=== PATIENT | female | born 1940 | race Caucasian/White ===

== ENCOUNTER 2024-06-05 12:11 | Outpatient (REF) | payer OTHER, SELFPAY ==
--- OUTSIDE RECORDS SUMMARY | 2024-06-05 13:53 | XMS_ITS ---
Author Organization [facility] Address [address] [place] [address] Care Team Providers Care Child Care Aide Name Role Phone Tracy Holloway Primary Care Provider Unav ailable Junie Rodríguez Unavailable [phone] Medications Medication SIG (Take, Route, Fr equency, Duration) Notes Start Date End Date Status Zolpidem Tartrate Ac tive Multivitamin Active Metamucil Active Lisinopril 10 MG 1 tablet Orally Once a day for 30 day(s) Active Ezetimibe 10 MG 1 tablet Orally Once a day for 30 day(s) Active Cetirizine HCl 5 MG 1 tablet Orally Once a day for 30 day(s) Active Calcium + D + K Acti ve Encounters Encounter Location Date Provider Diagnosis [address] [address] 05/31/2024 Junie Rodríguez Plan Of Treatment Next Appt Details Provider Name:Junie agrawal, 08/15/2024 03:30:00 PM, [address] [place], [address], Progress Notes * Rocío CHRISTIAN UDOB: [birth year] (83 yo F)Acc No.[id number]:05/31/2024 Progress Note Patient:?Isis CHRISTIANgerry Machado Provider:?Junie Rodríguez DPM :1940???Age:83 Y???Sex:Female D ate:05/31/2024 Address:[facility] [address] [place], [id number] Pcp:Tracy Holloway Subjective: * Chief Complaints: * ??? * Medical History:?Arthritis, Back,Hip,and Knee pain, CAD (Cholesterol), Chicken pox, Cataracts, High blood pressure, Numbness. * Medications:?Taking Calcium + D + K , Taking Cetirizine HCl 5 MG Tablet 1 tablet Orally Once a day , Taking Ezetimibe 10 MG Tablet 1 tablet Orally Once a day , Taking Lisinopril 10 MG Tablet 1 tablet Orally Once a day , Taking Metamucil , Taking Multivitamin , Taking Zolpidem Tartrate Objective: * Vitals:? Assessment: Plan: * Treatment: * Images: * The named appointment provid er may or may not be the originator of this progress note, and it is not deemed complete until electronically signed by the appointment provider. Sign off status: Pending * Provider:?Junie Rodríguez DPM Date:?07/2024 Generated for Brayan landry/Charu/Maximilianitting on:?06/05/2024 01:53 PM EDT
--- OUTSIDE RECORDS SUMMARY | 2024-06-05 13:53 | XMS_ITS | Patient Health Record ---
[facility] [place] Address [address] [place] [address] Care Team Providers Care Connie Scratcher Name Role Phone Tracy Holloway Primary Care Provider Unav ailable Junie Rodríguez Unavailable [phone] Coty Doll Unavailable [phone] Allergies No Known Allergies Reason For Referral Diagnosis 1 Other hammer toe(s) (acquired), left foot (M20.42) Diagnosis 2 Atherosclerosis of n ative artery of both lower extremities, with unspecified presence of clinical manifestation (I70.203) Diagnosis 3 Other hammer toe(s) (acquired), right foot (M20.41) Diagnosis 4 Arthritis of joint o f lesser toe, left (M19.072) Diagnosis 5 Primary osteoarthrit is, right ankle and foot (M19.071) Referring Provider First Name Emiliana agrawal Referring Provider Last Name Amie [facility] Provider Junie Rodríguez Referred Address [address] [facility],[place],[address], Referred Provider Specialty Podiatry Referral Priority Routine Diagnosis 1 Other hammer toe(s) (acquired), left foot (M20.42) Diagnosis 2 Other hammer toe(s) (acquired), right foot (M20.41) Diagnosis 3 Atherosclerosis of n ative artery of both lower extremities, with unspecified presence of clinical manifestation (I70.203) Diagnosis 4 Arthritis of joint o f lesser toe, left (M19.072) Diagnosis 5 Primary osteoarthrit is, right ankle and foot (M19.071) Diagnosis 6 Tinea unguium (B35.1 ) Diagnosis 7 Ingrowing nail (L60. 0) Diagnosis 8 Pain in right toe(s) (M79.674) Diagnosis 9 Pain in left toe(s) (M79.675) Diagnosis 10 Pain in right foot ( M79.671) Diagnosis 11 Pain in left foot (M 79.672) Referring Provider First Name Emiliana tanja Referring Provider Last Name Amie Referred [facility] Referred Provider Coty Doll Referred Address [address] [place], [place],[address],[place] Referred Provider Specialty Podiatry Referral Priority Routine Medications Medication SIG (Take, Route, Fr equency, [...] Calcium + D + K Acti ve Social History Tobacco Use: Social History Observation Description Date Details (start date - stop date) Never Smoker NA - NA Tobacco Use/Smoking Question Answer Notes Are you a: nonsmoker Additional Findings: Tobacco Non-User Current no n-smoker Alcohol Screen Question Answer Notes Did you have a drink containing alcohol in the p ast year? No Points 0 Interpretation Negative Tobacco use other than smoking: Question Answer Notes Are you an other tobacco user? No Problems Problem Type SNOMED Code ICD Code Onset Dates Problem Status W/U Status Risk Notes Problem 076380349854777 Primary osteoarthritis, right ankle and foot (M19.071) Active confirmed Problem Acquired hammer toe of left foot (2020042563697973) Other hammer toe(s) (acquired), left foot (M20.42) Active confirmed Problem Acquired hammer toe of right foot (7261947031648491) Other hammer toe(s) (acquired), right foot (M20.41) Active confirmed Problem Acquired hammer toe of left foot (4374202500024378) Other hammer toe(s) (acquired), left foot (M20.42) Active confirmed Problem Atherosclerosis of chilkoot artery of both lower extremities, with unspecified presence of clinical manifestation (I70.203) Active confirmed Problem Localized, primary osteoarthritis of the ankle and/or foot (420964721) Arthritis of joint of lesser toe, left (M19.072) Active confirmed Problem Osteoarthritis of midtarsal joint of left foot (2560996061731009) Osteoarthritis of midtarsal joint of left foot (M19.072) Active confirmed Problem Osteoarthritis of midtarsal joint of right foot (4468223743404154) Osteoarthritis of midtarsal joint of right foot (M19.071) Active confirmed Vital Signs Height 5 ft 4 in in 02/28/2024 Weight 130 lbs 02/28/2024 BMI 22.31 kg/m2 02/28/2024 Procedures Procedure Date Ordered Date Performed Result Body Sit e 53022-SDHS SKIN LESIONS, OVER 4 02/28/2024 N/A Encounters Encounter Location Date Provider Diagnosis [address] [address] 08/24/2023 Junie Rodríguez Atherosclerosis of chilkoot artery of both lower extremities, with unspecified presence of clinical manifestation I70.203 ; Primary osteoarthritis, right ankle and foot M19.071 ; Tinea unguium B35.1 ; Pain in right toe(s) M79.674 ; Pain in left toe(s) M79.675 and Pes planus of right foot M21.41 [facility] [address] 11/09/2023 Junie Rodríguez Atherosclerosis of chilkoot artery of both lower extremities, with unspecified presence of clinical manifestation I70.203 ; Primary osteoarthritis, right ankle and foot M19.071 ; Tinea unguium B35.1 ; Pain in right toe(s) M79.674 ; Pain in left toe(s) M79.675 ; Pes planus of right foot M21.41 ; Pain in left foot M79.672 ; Pain in left ankle and joints of left foot M25.572 ; Bursitis of left foot M77.52 ; Osteoarthritis of midtarsal joint of left foot M19.072 ; Pain in right foot M79.671 ; Pain in right ankle and joints of right foot M25.571 ; Bursitis of right foot M77.51 and Osteoarthritis of midtarsal joint of right foot M19.071 [facility] [address] [place] [address] 02/28/2024 Coty Doll Atherosclerosis of chilkoot artery of both lower extremities, with unspecified presence of clinical manifestation I70.203 ; Tinea unguium B35.1 ; Pain in right toe(s) M79.674 and Pain in left toe(s) M79.675 [facility] [address] [place] [address] 11/09/2023 Junie [facility] [address] [address] 11/09/2023 Junie [facility] [address] [address] 11/22/2023 Junie [facility] [address] 01/24/2024 Junie [facility] [address] [address] 02/03/2024 Junie [facility] [address] 02/22/2024 Coty Doll [facility] [address] [address] 05/29/2024 Junie Rodríguez Assessments Encounter Date Diagnosis (ICD Code) Assessment Notes Treatment Notes Treatment Clinical Notes Section Notes 08/24/2023 Primary osteoarthritis, right ankle and foot (ICD-10 - M19.071) 08/24/2023 Atherosclerosis of chilkoot artery of both lower extremities, with unspecified presence of clinical manifestation (ICD-10 - I70.203) 11/09/2023 Primary osteoarthritis, right ankle and foot (ICD-10 - M19.071) 11/09/2023 Atherosclerosis of chilkoot artery of both lower extremities, with unspecified presence of clinical manifestation (ICD-10 - I70.203) 02/28/2024 Tinea unguium (ICD-10 - B35.1) 02/28/2024 Atherosclerosis of chilkoot artery of both lower extremities, with unspecified presence of clinical manifestation (ICD-10 - I70.203) 02/28/2024 Pain in right toe(s) (ICD-10 - M79.674) 11/09/2023 Tinea unguium (ICD-10 - B35.1) 08/24/2023 Tinea unguium (ICD-10 - B35.1) 08/24/2023 Pain in right toe(s) (ICD-10 - M79.674) 11/09/2023 Pain in right toe(s) (ICD-10 - M79.674) 02/28/2024 Pain in left toe(s) (ICD-10 - M79.675) 11/09/2023 Pain in left toe(s) (ICD-10 - M79.675) 08/24/2023 Pain in left toe(s) (ICD-10 - M79.675) 08/24/2023 Pes planus of right foot (ICD-10 - M21.41) 11/09/2023 Pes planus of right foot (ICD-10 - M21.41) 11/09/2023 Pain in left foot (ICD-10 - M79.672) 11/09/2023 Pain in left ankle and joints of left foot (ICD-10 - M25.572) 11/09/2023 Bursitis of left foot (ICD-10 - M77.52) 11/09/2023 Osteoarthritis of midtarsal joint of left foot (ICD-10 - M19.072) 11/09/2023 Pain in right foot (ICD-10 - M79.671) 11/09/2023 Pain in right ankle and joints of right foot (ICD-10 - M25.571) 11/09/2023 Bursitis of right foot (ICD-10 - M77.51) 11/09/2023 Osteoarthritis of midtarsal joint of right foot (ICD-10 - M19.071) Plan Of Treatment Pending Test Test Name Order Date X ray : Foot, left 3V 01/17/2021 X ray : Foot, right 3V 01/17/2021 02423-OXLH SKIN LESIONS, OVER 4 02/28/20 24 Next Appt Details Provider Name:Junie agrawal, 08/15/2024 03:30:00 PM, [address] [facility], [place], [address], Insurance Providers Payer Name Payer Address Payer Phone Subscriber Number Group Number Insured Name Patient Relationship to Insured Coverage Start Date Coverage End Date Critical access hospital [address] [place] [address] [id number] Rocío Nick Self - patient is the insured Medical (General) History Medical History History ICD Code Arthritis Back,Hip,and Knee pain CAD (Cholesterol) Chicken pox Cataracts High blood pressure Numbness Surgical History Surgery Date(Month/Year) tumor removal colonoscopy tonsillectomy
--- OUTSIDE RECORDS SUMMARY | 2024-06-05 13:53 | XMS_ITS | Encounter Summary ---
Author Organization [facility] Address [address] [place] [address] Care Team Providers Care Day Care Center Director Name Role Phone Tracy Holloway MD Primary Care Pr ovider Reason for Visit * Reason Onset Date Comments Blood Pressure 05/23/2024 Encounter Details Date Type Department Care Team (Late st Contact Info) Description 05/23/2024 Telephone [facility] - [facility] [address] [facility] [address] [place] [phone] Xavier Maldonado MD [address] [facility] [address] [place] [address] Blood Pressure Social History Tobacco Use Types Packs/Day Years Used Date Smoking Tobacco: Never Smokeless Tobacco: Never Alcohol Use Standard Drinks/Week Comments Yes 0 (1 standard drink = 0.6 oz pur e alcohol) Comments Unknown Sex and Gender Information Value Date Recorded Sex Assigned at Female 03/10/2024 9:53 AM EST Legal Sex Female 7:52 PM EST Gender Identity Female 03/10/2024 9:53 AM EST Sexual Orientation Not on file documented as of this encounter Progress Notes * Sully Goodman MA - 05/23/2024 11:04 AM EST Recommended to check at least 2 hrs after taking her meds. * Dory Moore - 05/23/2024 10:40 AM EST Patient called she would like to know when she is to measure her blood pressure, if she needs to before or after taking her medication, and or between meals. Please give her a call back at [phone]. documented in this encounter Plan of Treatment Upcoming Encounters Date Type Department Care Team (Late st Contact Info) Description 06/14/2024 2:15 PM EDT Office Visit [address] [phone] Junie Leach PA [address] [place] [address] 06/19/2024 9:00 AM EDT Office Visit Urogynecology - [address] [phone] Shaniuqa Francois MD [address] [place] [address] [address] [place] [address] 07/31/2024 9:00 AM EDT Office Visit [address] [phone] Tracy Holloway MD [address] [place], [place] 08/02/2024 10:40 AM EDT Office Visit [facility] - [facility] [address] [facility] [address] [place] [address] Lisa Hutchinson NP 300 [facility] [address] [place] [phone] 09/25/2024 1:00 PM EDT Office Visit Urogynecology [address] [phone] Shaniqua Francois MD [address] [facility] [address] [place] [address] documented as of this encounter Visit Diagnoses Not on filedocumented in this encounter Care Teams Day Care Center Director Relationship Specialty Start Date End Date Tracy Holloway MD [address] [place] [address] PCP - General 01/12/23 documented as of this encounter
--- OUTSIDE RECORDS SUMMARY | 2024-06-05 13:53 | XMS_ITS | Clinical Summary ---
Author Organization [facility] Address [address] [place] [id number] Care Team Providers Care Finishing Inspector Name Role Phone Tracy Holloway MD Primary Care Provider Allergies No known active allergies Medications Medication Sig Dispensed Refills Start Date End Date Status lisinopril (PRINIVIL,ZeSTRIL) 10 MG tablet Take 1 tablet (10 mg total) by mouth daily. Active solifenacin (VESICARE) 5 MG tablet Take 1 tablet (5 mg total) by mouth daily. Active zolpidem (AMBIEN) 5 MG tablet Take 1 tablet (5 mg total) by mouth nightly as needed for sleep. Active multivitamin Tab tablet Take 1 tablet by mouth daily. Active Calcium Carb-Cholecalciferol (CALCIUM 500 + D PO) Take 1 tablet by mouth daily. Active Carboxymethylcellulos e Sodium (EYE DROPS OP) Apply 1 drop to eye as needed (dry eyes). Active aspirin enteric coated (ECOTRIN LOW STRENGTH) 81 MG EC tabletIndications:Diz ziness Take 1 tablet (81 mg total) by mouth daily. 30 tablet 03/09/2024 Active Active Problems Problem Noted Date Diagnosed Date Dizziness 03/09/2024 HTN (hypertension) 03/08/2024 Vision loss, left eye 03/08/2024 Encounters Date Type Department Care Team Description 03/08/2024 2:04 PM EST - 03/09/2024 6:04 PM EST Emergency [address] [phone] Pankaj Amaro MD Elysee, Ted, MD Gautam, Garima, MD Dharia, Aaras, MD Dizziness (Primary Dx); Syncope Discharge Disposition: Home or Self Care 03/08/2024 Travel from Last 3 Months Social History Tobacco Use Types Packs/Day Years Used Date Smoking Tobacco: Never Smokeless Tobacco: Never Tobacco Cessation:Counseling Given: Not Answered AUDIT-C Answer Date Recorded Q1: How often do you have a drink containing alc ohol? Monthly or less 03/08/2024 Q2: How many drinks containi ng alcohol do you have on a typical day when you are drinking? 1 or 2 03/08/2024 Q3: How often do you have si x or more drinks on one occasion? Never 03/08/2024 Sex and Gender Information Value Date Recorded Sex Assigned at Female 03/08/2024 3:01 PM EST Gender Identity Female 03/08/2024 3:01 PM EST Sexual Orientation Choose not to disclose 2023 3:01 PM EST Last Filed Vital Signs Vital Sign Reading Time Taken Comments Blood Pressure 166/79 03/09/2024 9:44 AM EST Pulse 68 03/09/2024 8:07 AM EST Temperature 36.7 ??C (98 ??F) 03/09/2024 8:07 AM EST Respiratory Rate 18 03/09/2024 8:07 AM EST Oxygen Saturation 97% 03/09/2024 8:07 AM EST Inhaled Oxygen Concentration - - Weight 56.6 kg (124 lb 11.2 oz) 024 11:44 PM EST Height 160 cm (5' 3 ) 03/08/2024 11:44 PM EST Body Mass Index 22.09 03/08/2024 11:44 PM EST Plan of Treatment Health Maintenance Due Date Last Done Comments DTaP/Tdap/Td Vaccines (1 - Tdap) 08/05/1958 Pneumococcal Vaccines 50+ (1 of 1 - PCV) 08/05/1989 Zoster (Shingles) Vaccine (1 of 2) 08/05/1989 DXA Bone Density (Females,Ages 65 and older) 08/05/2004 RSV Vaccine 60 years and older and Patients (1 - 1-dose 75+ series) 08/05/2014 Influenza Vaccine 10/28/2023 01/21/2023, , 01/22/2021, Additional history exists COVID-19 Vaccine ( season) 2023 03/04/2022, 01/08/2021, 05/24/2020, Additional history exists Hepatitis B Vaccines Aged Out No long er eligible based on patient's age to complete this topic Procedures Procedure Name Priority Date/Time Associated Diagnosis Comments ECHOCARDIOGRAM (TTE) COMPREHENSIVE (CONTRAST PRN) Routine 03/09/2024 8:53 AM EST VITAMIN B12 Routine 03/09/2024 7:40 AM EST TSH REFLEX TO FREE T4 Routine 03/09/2024 7:40 AM EST LIPID PANEL Routine 03/09/2024 7:40 AM EST HEMOGLOBIN A1C WITH ESTIMATED AVERAGE GLUCOSE Routine 03/09/2024 7:40 AM EST CTA HEAD AND NECK WITH CONTRAST STAT 03/08/2024 3:42 PM EST XR CHEST 2 VIEWS STAT 03/08/2024 3:17 PM EST HIGH SENSITIVITY TROPONIN T CARD 03/08/2024 2:28 PM EST MAGNESIUM STAT 03/08/2024 2:28 PM EST COMPREHENSIVE METABOLIC PANEL STAT 03/08/2024 2:28 PM EST COMPLETE BLOOD COUNT, WITH DIFFERENTIAL STAT 03/08/2024 2:28 PM EST ECG 12-LEAD Routine 03/08/2024 2:08 PM EST ECG 12-LEAD STAT 03/08/2024 2:08 PM EST from Last 3 Months Results * ECHOCARDIOGRAM COMPREHENSIVE WITH AG SALINE (03/09/2024 8:53 AM EST) LV buenrostro vol 3D 112.0 mL LV Diastolic Volume 80 mL LV sys vol 3D 47.0 mL LV Systolic Volume 33 mL IVS (F:0.6-0.9, M:0.6-1.0) 1.0 cm IVS Mean (F:0.6-0.9, M:0.6-1.0) 1.0 cm LVIDD (F:3.8-5.2, M:4.2-5.8) 3.8 cm LVIDD Mean (F:3.8-5.2, M:4.2-5.8) 3.8 cm LVIDS (F:2.2-3.5, M:2.5-4.0) 2.7 cm LVIDS (F:2.2-3.5, M:2.5-4.0) 2.7 cm LVOT diameter 2.0 cm LVOT diameter mean 2.0 cm LVOT mn grad mean 2.0 mmHg LVOT VTI MEAN 22.5 cm LVOT mn grad 2.0 mmHg LVOT VTI 22.5 cm LVOT peak enmanuel 1.0 m/s LVOT peak enmanuel mean 1.0 m/s PW (F:0.6-0.9, M:0.6-1.0) 0.9 cm PW Mean (F:0.6-0.9, M:0.6-1.0) 0.9 cm MV E' Lateral Velocity 11.60 cm/s MV E' Lateral Velocity Mean 11.60 cm/s MV E' Septal Velocity 8.92 cm/s MV E' Septal Velocity Mean 8.92 cm/s LA sup-inf (apical 2-ch view) 4.73 cm LA volume 46.5 mL RA area 10.3 cm2 RA 2D Volume 21.3 mL AV mean gradient 5.0 mmHg Ao VTI 33.2 cm Ao peak enmanuel 1.6 m/s Sinuses of Valsalva 2.6 cm Sinuses of Valsalva Mean 2.6 cm Inferior Vena Cava Diameter 1.9 cm Inferior Vena Cava Diameter Mean 1.9 cm E wave decelartion time 222 ms E wave decelartion time mean 222 ms MV Peak A-Wave 93.3 cm/s MV Peak A-Wave Mean 93.3 cm/s MV Peak E-Wave 70.7 cm/s MV Peak E-Wave Mean 70.7 cm/s MV mean gradient mean 3.0 mmHg MV VTI MEAN 33.3 cm MV mean gradient 3.0 mmHg MV VTI 33.3 cm MV peak gradient 6.0 mmHg RVID d 3.1 cm RVID d Mean 3.1 cm RV Free wall pk S' 15.0 cm/s RV Free wall pk S' Mean 15.0 cm/s Tapse 2.2 cm Tapse Mean 2.2 cm TR Peak Enmanuel 2.5 m/s Heart Rate 68 bpm BP Systolic 172 mmHg BP Diastolic 98 mmHg Height 63.00 inches Weight 124.00 lbs LV Mass Index (F:43-95, M:49-115) 69.1 g/m2 LA Volume Index (16-34) 29.5 mL/m2 LV Diastolic Volume Index (F:29-61, M:35-75) 50.7 mL/m2 LV Systolic Volume Index (F:8-24, M:11-31) 20.9 mL/m2 E/E' ratio 6.09 AV peak gradient 10.2 mmHg LVOT stroke volume 71 mL LVOT area 3.1 cm2 E/A ratio 0.76 MV valve area by continuity eq 2.1 cm2 AV LVOT peak gradient 4.0 mmHg Dimensionless Index 0.68 SVI 45 mL/m2 AV area by cont VTI 2.1 cm2 Sinuses of Valsalva Index 1.6 cm/m2 EF - 3D Echo 58 % Valve area - Index 1.3 cm2/m2 LV mass 109.0 g Plaza BP EF (55-75) 59 % LA Volume Index 13.5 mL/m2 E/E' Average 7.0 E/E' Septal 7.9 E/E' Lateral 6.1 LVOT SI 44.76 mL/m2 LV RWT 0.47 Left Ventricular Cardiac Index 3.0 L/min/m2 Left Ventricular Cardiac Output 4.8 L/min BSA 1.58 m2 GLS 22.1 % TR Peak Gradient 25 mmHg Est. RA pres 3 mmHg RVSP 28 mmHg PASP 28.0 mmHg Anatomical Region Laterality Modality Ultrasound Narrative 03/09/2024 11:20 AM EST ?Left ventricular systolic function is normal. The quantitative EF is 58% by 3D imaging, and 59% by 2D Plaza biplane. Global longitudinal strain is normal at -22.1%. ?Right ventricular systolic function is normal. Normal tricuspid annular plane systolic excursion (TAPSE) >1.6 cm. Normal systolic excursion velocity by TDI (>9.5 cm/s). ?There is moderate mitral regurgitation with a centrally directed jet. ?The estimated right ventricular systolic pressure is 28 mmHg. ?There is no previous study for comparison in our system. Technical Details Saline (bubble) contrast was used during the study. Overall the study quality was adequate. The study was technically difficult. 3D echocardiographic imaging of left ventricle structure and function was performed demonstrating the following study findings. Left Ventricle The left ventricle is normal in size. There is asymmetric hypertrophy. Left ventricular systolic function is normal. The quantitative EF is 58% by 3D imaging, and 59% by 2D Plaza biplane. Global longitudinal strain is normal at -22.1%. No wall motion abnormalities are present. Diastolic function is normal. Right Ventricle The right ventricle is normal in size. Right ventricular systolic function is normal. Normal tricuspid annular plane systolic excursion (TAPSE) >1.6 cm. Normal systolic excursion velocity by TDI (>9.5 cm/s). Left Atrium Left atrial size is normal. Right Atrium Right atrial size is normal. Based on IVC diameter and collapse, right atrial pressure is estimated to be normal (3 mmHg). There is no evidence of an intra- atrial shunt by agitated saline. Mitral Valve The mitral leaflets are mildly thickened. There is moderate mitral regurgitation with a centrally directed jet.There is no mitral valve stenosis. Tricuspid Valve There is mild tricuspid regurgitation. The estimated right ventricular systolic pressure is 28 mmHg. Aortic Valve The aortic valve is tricuspid. There is no aortic regurgitation or stenosis. Pulmonic Valve The pulmonic valve was not well visualized. Ascending Aorta The aortic root dimension is normal. Pericardium There is no pericardial effusion. Prior Study There is no previous study for comparison in our system. Fabienne NORRIS CV ECHO ORDERABLES * TSH Reflex Free T4 (03/09/2024 7:40 AM EST) TSH, Highly Sensitive 2.08 0.27 - 4.20 mIU/L 03/09/2024 8:42 AM EST [facility] Blood (Plasma/Serum) 03/09/2024 7:40 AM EST 03/09/2024 7:48 AM EST Micha Moya MD LAB BLOOD ORDERABLES [address] [address], [address] [address] * Hemoglobin A1c with Estimated Average Glucose (Routine) (03/09/2024 7:40 AM EST) Hemoglobin A1C 5.3 <5.7 % 03/09/2024 12:10 PM [facility] Comment: A1c% ? Interpretation 5.7 - 6.0 ?Increase risk of diabetes 6.1 - 6.4 ?Higher risk of diabetes > or = 6.5 ?? Consistent with diabetes Diabetes Care, 33(Supp 1):S1-S61, 2010 Estimated Average Glucose 105 mg/dL 03/09/2024 12:10 PM [facility] Blood Blood specimen / Unknown 03/09/2024 7:40 AM EST 03/09/2024 8:02 AM EST Micha Moya [place] [address], [place] [address] * Vitamin B12 (03/09/2024 7:40 AM EST) Vitamin B12 861 243 - 894 pg/mL 03/09/2024 11:43 AM EST [facility] Blood (Plasma/Serum) 03/09/2024 7:40 AM EST 03/09/2024 7:48 AM EST Micha Moya MD [place] [address], [place] [address] * (ABNORMAL) Lipid Panel (AM) (03/09/2024 7:40 AM EST) Cholesterol, Total 300(H) <200 mg/dL 2023 8:42 AM [facility] Triglycerides 66 <150 mg/dL 03/09/2024 8:42 AM [facility] Cholesterol, HDL 67 >39 mg/dL 03/09/20 8:42 AM [facility] Estimated LDL 220(H) <130 mg/dL 03/09/2024 8:42 AM [facility] Comment: NCEP Guidelines: ?< 100 mg/dL ??Optimal 100 - 129 mg/dL ??Near Optimal/Above Optimal 130 - 159 mg/dL ??Borderline High 160 - 189 mg/dL ??High ??>/= 190 mg/dL ??Very High Cholesterol/HDL Ratio 4.5 0.0 - 5.0 Ratio 03/09/2024 8:42 AM [facility] Comment: Relative Risk ? Ratio - Male ? Ratio - Female ?0.5 ?3.4 ?3.3 ?1.0 ?5.0 ?4.4 ?2.0 ?9.6 ?7.1 ?3.0 ? 23.4 ? 11.0 Blood (Plasma/Serum) 03/09/2024 7:40 AM EST 03/09/2024 7:48 AM EST Micha Moya MD LAB BLOOD ORDERABLES [facility] [address] [facility] [place] [address], [facility] [address] [place] [address] * CTA Head and Neck With IV Contrast (03/08/2024 3:42 PM EST) Anatomical Region Laterality Modality CTA Head and Neck Computed Tomog ni 03/08/2024 3:43 PM EST Impressions 03/08/2024 3:56 PM EST 1. ??No evidence of hemodynamically significant cervical artery stenosis or dissection. 2. ??No proximal occlusion of a major intracranial artery. 3. 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 4. ??No acute intracranial hemorrhage. Narrative 03/08/2024 3:56 PM EST EXAM: CTA HEAD AND NECK WITH CONTRAST on 03/08/2024 3:10 PM CLINICAL HISTORY: Near syncope abnormal neuroexam. COMPARISONS: None TECHNIQUE: Helical noncontrast head CT with axial reconstructions and coronal and sagittal reformations. Subsequently, helical axial acquisition from the arch to the vertex was obtained following high-rate IV contrast administration, with axial reconstructions and coronal and sagittal reformations. 3-D image post-processing on another workstation was performed and submitted for review. Iterative reconstruction technique was employed to reduce patient radiation exposure. NASCET criteria utilized for characterization of internal carotid artery stenosis. CONTRAST: 80 mL of Omnipaque 350 FINDINGS: The visualized thoracic aortic arch and proximal great vessels are unremarkable. There is no hemodynamically significant common or internal carotid artery stenosis. ??The left vertebral artery is small in caliber and likely developmentally nondominant. Both vertebral arteries are patent. The limited visualized lung apices are clear. ?? There are degenerative disc changes at C3-4, C4-5 and C5-6, contributing to mild/moderate spinal canal stenosis. There is normal enhancement of the visualized distal internal carotid, anterior and left middle cerebral arteries. There is mild stenosis of the right middle cerebral artery at the proximal M2 segment. There is a normal anterior communicating artery complex. ?? There is origin of the left posterior cerebral artery. There is moderate stenosis of the right posterior cerebral artery at the proximal P2 segment. The vertebral, basilar and left posterior cerebral arteries are grossly patent. ?? The early parenchymal enhancement is grossly unremarkable. ?? The visualized intracranial venous structures are grossly unremarkable. The noncontrast portion of the exam demonstrates no acute intracranial hemorrhage. ??No mass effect, midline shift, herniation or hydrocephalus. . There are periventricular white matter hypodensities which most likely represent chronic microangiopathic changes. The visualized paranasal sinuses and mastoid air cells are clear. ?? The surrounding soft tissues and osseous structures are unremarkable. Procedure Note Ricardo Garcia MD - 03/08/2024 EXAM: CTA HEAD AND NECK WITH CONTRAST on 03/08/2024 3:10 PM CLINICAL HISTORY: Near syncope abnormal neuroexam. COMPARISONS: None TECHNIQUE: Helical noncontrast head CT with axial reconstructions andcoronal and sagittal reformations. Subsequently, helical axial acquisitionfrom the arch to the vertex was obtained following high-rate IV contrastadministration, with axial reconstructions and coronal and sagittal reformations. 3-D imagepost-processing on another workstation was performed and submitted forreview. Iterative reconstruction technique was employed to reduce patientradiation exposure. NASCET criteria utilized for characterization of internal carotid artery stenosis. CONTRAST: 80 mL of Omnipaque 350 FINDINGS: The visualized thoracic aortic arch and proximal great vessels areunremarkable. There is no hemodynamically significant common or internalcarotid artery stenosis. The left vertebral artery is small in caliberand likely developmentally nondominant. Both vertebral arteries are patent. The limited visualized lung apices areclear. There are degenerative disc changes at C3-4, C4-5 and C5-6,contributing to mild/moderate spinal canal stenosis. There is normal enhancement of the visualized distal internal carotid,anterior and left middle cerebral arteries. There is mild stenosis of theright middle cerebral artery at the proximal M2 segment. There is a normalanterior communicating artery complex. There is origin of the left posterior cerebral artery.There is moderate stenosis of the right posterior cerebral artery at theproximal P2 segment. The vertebral, basilar and left posterior cerebralarteries are grossly patent. The early parenchymal enhancement is grossly unremarkable. The visualizedintracranial venous structures are grossly unremarkable. The noncontrast portion of the exam demonstrates no acute intracranialhemorrhage. No mass effect, midline shift, herniation or hydrocephalus. .There are periventricular white matter hypodensities which most likelyrepresent chronic microangiopathic changes. The visualized paranasal sinuses and mastoid air cells are clear.The surrounding soft tissues and osseous structures are unremarkable. IMPRESSION: 1. No evidence of hemodynamically significant cervical artery stenosis ordissection. 2. No proximal occlusion of a major intracranial artery. 3. Moderate stenosis at the right posterior cerebral artery proximal [id number]. 4. No acute intracranial hemorrhage. Omi Oswald APRN IMG CT ORDERABLES * XR Chest 2 views (03/08/2024 3:17 PM EST) Anatomical Region Laterality Modality Chest Computed Radiogr aphy 03/08/2024 3:28 PM EST Impressions 03/08/2024 3:29 PM EST 1. ??No acute process detected. Narrative 03/08/2024 3:29 PM EST XR CHEST 2 VIEWS: 03/08/2024 3:05 PM CLINICAL HISTORY: Near syncope. Near syncope. COMPARISON:There are no prior studies for comparison FINDINGS: The osseous structures are demineralized.. The lungs are clear. The heart and mediastinum are unremarkable. Pulmonary vascularity is normal. ?? No pleural effusion or pneumothorax. No acute pulmonary parenchymal process detected. Procedure Note Kayden Gallardo MD - 03/08/2024 XR CHEST 2 VIEWS: 03/08/2024 3:05 PM CLINICAL HISTORY: Near syncope. Near syncope. COMPARISON:There are no prior studies for comparison FINDINGS: The osseous structures are demineralized.. The lungs are clear. The heart and mediastinum are unremarkable. Pulmonaryvascularity is normal. No pleural effusion or pneumothorax. No acute pulmonary parenchymalprocess detected. IMPRESSION: 1. No acute process detected. Omi Oswald APRN IMG DIAGNOSTIC IMAGI NG ORDERABLES * Troponin T, High Sensitivity (03/08/2024 2:28 PM EST) High Sensitivity Troponin T 12 <15 ng/L 03/08/2024 3:10 PM EST [facility] Delta (Change) NO PREVIOUS RESULT <3 03/08/2024 3:10 PM EST [facility] Blood (Plasma/Serum) 03/08/2024 2:28 PM EST 03/08/2024 2:45 PM EST [facility]mi [facility] LAB BLOOD ORDERABLES Performing Organization Address City/State/[facility] Co de Phone Number [facility] [address] [phone], [place] * (ABNORMAL) Complete Blood Count, with Differential (03/08/2024 2:28 PM EST) [facility] White Blood Cell Count 7.5 4.0 - 11.0 Thou/uL 03/08/2024 2:48 PM [facility] Platelet Count 232 150 - 450 Thou/uL 03/08/2024 2:48 PM [facility] Hemoglobin 13.1 11.7 - 15.7 g/dL 03/08/2024 2:48 PM [facility] Hematocrit 39.9 35.0 - 47.0 % 03/08/2024 2:48 PM [facility] Red Blood Cell Count 3.95(L) 4.00 - 5.40 Mil/uL 03/08/2024 2:48 PM [facility] MCV 101(H) 80 - 100 fL 03/08/2024 2:48 PM [facility] MCH 33.2(H) 27.0 - 31.0 pg 03/08/2024 2:48 PM [facility] MCHC 32.8 30.0 - 36.0 g/dL 03/08/2024 2:48 PM [facility] RDW 12.8 11.5 - 14.5 % 03/08/2024 2:48 PM [facility] MPV 9.3 7.5 - 12.5 fL 03/08/2024 2:48 PM [facility] Neutrophils Auto 59.0 % 03/08/20 2:48 PM [facility] Immature Granulocytes 0.1 % 03/08/2024 2:48 PM [facility] Lymphocytes Auto 31.6 % 03/08/20 2:48 PM [facility] Monocytes Auto 6.1 % 03/08/2024 2:48 PM [facility] Eosinophils Auto 2.7 % 03/08/20 2:48 PM [facility] Basophils Auto 0.5 % 03/08/2024 2:48 PM [facility] Abs Neutrophils Auto 4.43 2.00 - 7.50 Thou/uL 03/08/2024 2:48 PM [facility] Abs Immature Granulocytes 0.01 0.00 - 0.10 Thou/uL 03/08/2024 2:48 PM [facility] Abs Lymphocytes Auto 2.38 1.50 - 4.50 Thou/uL 03/08/2024 2:48 PM EST [facility] Abs Monocytes Auto 0.46 0.20 - 1.50 Thou/uL 03/08/2024 2:48 PM EST [facility] Abs Eosinophils Auto 0.20 0.00 - 0.70 Thou/uL 03/08/2024 2:48 PM EST [facility] Abs Basophils Auto 0.04 0.00 - 0.20 Thou/uL 03/08/2024 2:48 PM EST [facility] Blood Blood specimen / Unknown 03/08/2024 2:28 PM EST 03/08/2024 2:45 PM EST [facility] Performing Organization Address City/[facility]/[place] [address], * Magnesium (03/08/2024 2:28 PM EST) Pathologist [facility] Magnesium 2.2 1.6 - 2.7 mg/dL 03/08/2024 3:08 PM [facility] Blood (Plasma/Serum) 03/08/2024 2:28 PM EST 03/08/2024 2:45 PM EST O[facility] LAB BLOOD ORDERABLES Performing Organization Address City/[facility]/[place] [address], * (ABNORMAL) Comprehensive Metabolic Panel (03/08/2024 2:28 PM EST) Pathologist [facility] Glucose 97 65 - 99 mg/dL 03/08/2024 3:08 PM [facility] Comment:Fasting: <100 mg/dL, Non-Fasting: <200 mg/dL (ADA 2005) Blood Urea Nitrogen (BUN) 15 8 - 21 mg/dL 03/08/2024 3:08 PM [facility] Creatinine 1.0 0.4 - 1.1 mg/dL 03/08/2024 3:08 PM [facility] eGFR 56(L) >59 03/08/2024 3:08 PM [facility] Comment:CKD-EPI (2020) in mL /min/1.73 sq meters. Sodium 138 136 - 145 mmol/L 03/08/2024 3:08 PM [facility] Potassium 4.4 3.4 - 5.3 mmol/L 03/08/2024 3:08 PM [facility] Chloride 103 98 - 107 mmol/L 03/08/2024 3:08 PM [facility] CO2 23 22 - 33 mmol/L 03/08/2024 3:08 PM [facility] Calcium 9.5 8.7 - 10.5 mg/dL 03/08/2024 3:08 PM [facility] Alkaline Phosphatase 73 32 - 122 U/L 03/08/2024 3:08 PM [facility] Aspartate Aminotrans (AST) 19 10 - 50 U/L 03/08/2024 3:08 PM [facility] Alanine Aminotrans (ALT) 12 10 - 50 U/L 03/08/2024 3:08 PM [facility] Bilirubin, Total 0.7 0.2 - 1.0 mg/dL 03/08/2024 3:08 PM [facility] Protein, Total 6.3 6.3 - 8.3 g/dL 03/08/2024 3:08 PM [facility] Albumin 4.1 3.4 - 4.8 g/dL 03/08/2024 3:08 PM [facility] BUN/Creatinine Ratio 15 10.0 - 25.0 Ratio 03/08/2024 3:08 PM [facility] Globulin 2.2 1.5 - 3.9 g/dL 03/08/2024 3:08 PM [facility] Albumin/Globulin Ratio 1.9 1.0 - 3.0 Ratio 03/08/2024 3:08 PM [facility] Anion Gap 12 7 - 17 03/08/2024 3:08 PM [facility] Blood (Plasma/Serum) 03/08/2024 2:28 PM EST 03/08/2024 2:45 PM EST Omi Oswald APRN LAB BLOOD ORDERABLES [facility] [address] [phone], * ECG 12 lead (03/08/2024 2:08 PM EST) Only the most recent of2 resultswithin the time period is included. Ventricular rate 67 BPM EKG [facility] Atrial rate 67 BPM EKG [facility] P-R interval 188 ms EKG [facility] QRS [facility] 102 ms EKG [facility] Q-T interval 412 ms E[facility] QTC calculation (Bazett) 435 ms EKG [facility] P axis 37 degrees EKG [facility] R axis -30 degrees EKG [facility] T axis 77 degrees EKG [facility] 03/08/2024 2:08 PM EST Narrative EKG [facility] - 03/14/2024 11:12 AM EST Normal sinus rhythm Left axis deviation When compared with ECG of 08-Mar-2024 14:08, (unconfirmed) No significant change was found Confirmed by MD Amaro Brian ([id number]) on 03/14/2024 11:12:45 AM Procedure Note Pankaj Amaro MD - 03/14/2024 Normal sinus rhythm Left axis deviation When compared with ECG of 08-Mar-2024 14:08, (unconfirmed) No significant change was found Confirmed by MD Amaro Brian ([id number]) on 03/14/2024 11:12:45 AM Providered Interfaces [facility]ABLES [facility] Last 3 Months Advance Directives * Full Code (Latest Code Status on File) Date Activated Date Inactivated Comments 03/08/2024 11:31 PM Care Teams Finishing Inspector Relationship Specialty Start Date End Date Tracy Holloway MD [address] [place] [id number] PCP - General Internal Medicine 03/08/24
--- OUTSIDE RECORDS SUMMARY | 2024-06-05 13:53 | XMS_ITS ---
Author Organization [facility] priscilla Sanibel Address [address] [facility] [place] [address] Care Team Providers Care Ms Sql Server Developer Name Role Phone Tracy Holloway Primary Care Provider Unav ailable Junie Rodríguez Unavailable [phone] Coty Doll Unavailable [phone] Allergies No Known Allergies REASON FOR VISIT At Risk Footcare, Painful Nail(s) aggrevated by shoes and causing difficulty standing/walking. Medications Medication SIG (Take, Route, Fr equency, Duration) Notes Start Date End Date Status Calcium + D + K Acti ve Cetirizine HCl 5 MG 1 tablet Orally Once a day for 30 day(s) Active Multivitamin Active Metamucil Active Zolpidem Tartrate Ac tive Ezetimibe 10 MG 1 tablet Orally Once a day for 30 day(s) Active Lisinopril 10 MG 1 tablet Orally Once a day for 30 day(s) Active Social History Tobacco Use: Social History Observation [...] Are you an other tobacco user? No Vital Signs Height 5 ft 4 in in 02/28/2024 Weight 130 lbs 02/28/2024 BMI 22.31 kg/m2 02/28/2024 Procedures Procedure Date Ordered Date Performed Result Body Sit e 82852-NSEP SKIN LESIONS, OVER 4 02/28/2024 N/A Encounters Encounter Location Date Provider Diagnosis [facility] [address] [address] [place] [address] 02/28/2024 Coty Doll Atherosclerosis of omaha artery of both lower extremities, with unspecified presence of clinical manifestation I70.203 ; Tinea unguium B35.1 ; Pain in right toe(s) M79.674 and Pain in left toe(s) M79.675 Assessments Encounter Date Diagnosis (ICD Code) Assessment Notes Treatment Notes Treatment Clinical Notes Section Notes 02/28/2024 Atherosclerosis of omaha artery of both lower extremities, with unspecified presence of clinical manifestation (ICD-10 - I70.203) 02/28/2024 Tinea unguium (ICD-10 - B35.1) 02/28/2024 Pain in right toe(s) (ICD-10 - M79.674) 02/28/2024 Pain in left toe(s) (ICD-10 - M79.675) Plan Of Treatment Pending Test Test Name Order Date 58400-NMXI SKIN LESIONS, OVER 4 02/28/20 24 Next Appt Details Follow Up: 3 Months, Reason: Provider Name:Junie agrawal, 08/15/2024 03:30:00 PM, [address] [place] [address], [place], [address], Procedure Notes * Category Sub-Category Detail Notes Debride Nail 6-10 Nail debridement Performance o f this nail treatment by a nonprofessional would put this patients foot and overall health at risk. Therefore, debridement to affected nail(s), as described in exam, was performed extensively to reduce/remove overall nail length, girth, thickness, subungual debris, and necrotic tissue, by manual and/or electrical means through the use of a nail nipper and/or dremel-type drier and grinder tender, to a more viable healthy nail plate or bed tissue 6-10 nails in total. Silver nitrate was used for any petechial bleeding as necessary. Definitive antifungal treatment options, both pharmaceutical and surgical, have been reviewed and discussed with the patient. The patient solely prefers the use of intermittent/as needed professional debridement services for their nail condition and understands the need for additional periodic treatments to maintain effectiveness in symptomatic relief - 51431 Keratoma Treatment Parring or Cutting o f Benign Hyperkeratotic Lesion(s) (-57) More than 4 Lesions - The Benign hyperkeratotic lesions, ( _6) in total, locations as stated and described in exam, were pared, and/or cut utilizing a sterile 15 blade, tissue nippers, and/or power 3[employer] instrumentation - 18734, Q8 Progress Notes * Rocío CHRISTIAN UDOB: [birth year] (83 yo F)Acc No.[id number]:02/28/2024 Progress Note Patient:?Rocío CHRISTIAN U Provider:?Coty Doll DPM :1940???Age:83 Y???Sex:Female D ate:02/28/2024 Address:[address] [place] [address] [place], [id number] Pcp:Tracy Holloway Subjective: * Chief Complaints: * ???At Risk FootcarePainful N ail(s) aggrevated by shoes and causing difficulty standing/walking. * HPI: ???At Risk footcare:?Pt States Last PCP Visit:?Date?11/01/2023 * ROS:?General/Constitutional:?Nausea?denies.?Vomiting?denies.?Hunger Thirst?denies.?Loss appetite?denies.?Chills?denies.?Fatigue?admits.?Fever?denies.?Night Sweats?denies.?Unexplained weight loss?denies.?Unexplained weight gain?denies.?HEENTM:?Dentures?denies.?Dizziness?denies.?Glasses/contacts?denies.?Retinopathy?de nies.?Blurred/double vision?denies.?TMJ?denies.?Discharge/drainage?denies.?Implants?denies.?Sore throat?denies.?Dental implants?denies.?Hard of hearing ?denies.?Difficulty chewing/swallowing/speaking?denies.?Nose bleeds?denies.?Sore mouth?denies.?Respiratory:?On Oxygen?denies.?Pneumonia/pleurisy?denies.?Bronchitis?denies.?Emphysema?denies.?C oughing?denies.?Cough blood?denies.?Shortness of breath?denies.?Wheezing?denies.?Cardiovascular:?Pacemaker?denies.?MVP?denies.?WPW?denies.?CHF?denies.?Heart attack?denies.?Septal defect?denies.?Rapid beat?denies.?Chest pain ?denies.?Atrial Fib.?denies.?Murmur/Palpitations?denies.?Gastrointestinal:?Hemorrhoids?denies.?Stomach/Abdominal pain?denies.?Dark blood stool?denies.?Irritable bowel ?denies.?Constipation?denies.?Diarrhea?denies.?Hematology:?Swelling?denies.?Clots?denies.?Varicose Veins?denies.?Bruising?denies.?Bleeding problem?denies.?Genitourinary:?Blood urine?denies.?Frequent/Painfu/urination/bladder control?denies.?Kidney stones?denies.?Infection (UTI)?denies.?Nephropathy?denies.?sex trans dis (STD)?denies.?Prostate?denies.?Musculoskeletal:?Hammertoes?denies.?Bunions?admits.?Back Pain?admits.?Muscle Cramps/ Resting?denies.?Muscle cramps / walking?admits.?Generalized aches and pains?admits.?Weakness?denies.?Integ.:?Mullins?denies.?Scars?denies.?Corns/calluses?admits.?Ingrown nails?denies.?Painful nails?admits.?Open Sores?denies.?Rashes?denies.?Neurologic:?Difficulty sleeping?denies.?Brain disorder?denies.?Numbness?admits.?Balance trouble?denies.?Confusion?denies.?Fainting/blackouts?denies.?Tingling?denies.?Tr emors?denies.? * Medical History:? * Surgical History:?tumor maurice divine colonoscopy tonsillectomy * Hospitalization/Major Diagno stic Procedure:?Denies Past Hospitalization * Family History:?Mother: dece ased, diagnosed with Family history of arthritis.?Father: , foot problems, heart attack, poor circulation, stroke, diagnosed with Unspecified essential hypertension. Son(s): alive, [employer], diagnosed with Other specified conditions influencing health status.? * Social History:?Tobacco Use:?Tobacco Use/Smoking?Are you a:?nonsmoker ?Additional Findings: Tobacco Non-User?Current non-smoker ?Tobacco use other than smoking?Are you an other tobacco user??No ???Drugs/Alcohol:?Drugs?Have you used drugs other than those for medical reasons in the past 12 months??No ?Alcohol Screen?Did you have a drink containing alcohol in the past year??No ?Points?0 ?Interpretation?Negative ???Miscellaneous:?Caffeine: no. ?Children: yes, 4. ?Exercise: yes, gym, walking. ?Marital status: . ?Occupation: Retired. * Medications:?TakingCalcium + D + K Cetirizine HCl 5 MG Tablet 1 tablet Orally Once a day Ezetimibe 10 MG Tablet 1 tablet Orally Once a day Lisinopril 10 MG Tablet 1 tablet Orally Once a day Metamucil Multivitamin Zolpidem Tartrate Medication List reviewed and reconciled with the patientTaking Calcium + D + K Taking Cetirizine HCl 5 MG Tablet 1 tablet Orally Once a day Taking Ezetimibe 10 MG Tablet 1 tablet Orally Once a day Taking Lisinopril 10 MG Tablet 1 tablet Orally Once a day Taking Metamucil Taking Multivitamin Taking Zolpidem Tartrate Medication List reviewed and reconciled with the patient * Allergies:?N.K.D.A.yes[Aller gies Verified] Objective: * Vitals:?Ht: 5 ft 4 in, Wt:13 0, BMI: 22.31, Shoe size:10, Wt-k.97 kg. * Examination: ???Vascular: ?DP PULSES(B):? 0/4, B/L.?PT PULSES(B):? 0/4, B/L.?CAPILLARY FILL TIME:? delayed, all digits, B/L.?TROPHIC CONDITION-TEXTURE/ELASTICITY/TURGOR/HAIR GROWTH(B):? decreased, B/L.?TEMPERTURE GRADIENT(C):? decreased, cool to cool, proximal to distal, B/L.?CLAUDICATION(C):?denies, B/L.?REST PAIN:?denies, B/L.?Nails: ?NAILS are:?Elongated, overgrown, dystrophic, lytic, greater than 3mm thick, discolored and friable with crumbly malodorous subungual debris, with pain on palpation, T1, T2, T3, T4, T6, T7, T8, T9?B/L.?Dermatologic: ?SKIN FINDINGS:?Skin exam reveals Keratotic lesion(s) located at , TA , T5 , Medial plantar , SUB MTH (s) , 1 , B/L, plantar heels B/L.?Orthopedic: ?MUSCLE STRENGTH:?5/5 all groups in a symmetrical fashion, B/L.?FOOTWEAR:? shoe gear properties exacerbate patients foot/toe deformity.? Assessment: * Assessment: 1.?Tinea unguium - B35.1???2 .?Atherosclerosis of omaha artery of both lower extremities, with unspecified presence of clinical manifestation - I70.203 (Primary)???3.?Pain in right toe(s) - M79.674???4.?Pain in left toe(s) - M79.675??? Plan: * Treatment: * Procedures:?Debride Nail 6-10:?Nail debridement?Performance of this nail treatment by a nonprofessional would put this patients foot and overall health at risk. Therefore, debridement to affected nail(s), as described in exam, was performed extensively to reduce/remove overall nail length, girth, thickness, subungual debris, and necrotic tissue, by manual and/or electrical means through the use of a nail nipper and/or dremel-type drier and grinder tender, to a more viable healthy nail plate or bed tissue 6-10 nails in total. Silver nitrate was used for any petechial bleeding as necessary. Definitive antifungal treatment options, both pharmaceutical and surgical, have been reviewed and discussed with the patient. The patient solely prefers the use of intermittent/as needed professional debridement services for their nail condition and understands the need for additional periodic treatments to maintain effectiveness in symptomatic relief - 41530.?Keratoma Treatment:?Parring or Cutting of Benign Hyperkeratotic Lesion(s)?(-57) More than 4 Lesions - The Benign hyperkeratotic lesions, ( _6) in total, locations as stated and described in exam, were pared, and/or cut utilizing a sterile 15 blade, tissue nippers, and/or power dremel instrumentation - 75151, Q8.? * Procedure Codes:?67247 DEBRI DE NAIL, 6 OR MORE, Modifiers: XS 36019 TRIM SKIN LESIONS, OVER 4, Modifiers: XS , Q8 * Follow Up:?3 Months * Images: * Sign off status: Completed true * Provider:?Coty Doll DPM Date:?04/30/2023 Generated for Brayan landry/Charu/eTransmitting on:?06/05/2024 01:53 PM EDT History and Physical Notes * HPI (History of Present Illness) Category Sub-Category Detail Notes Category Not es At Risk footcare Pt States Last PCP Visit: Date: 4 Examination Category Sub-Category Detail Notes Category Not es Dermatologic SKIN FINDINGS: Skin exam reveal s Keratotic lesion(s) located at , TA , T5 , Medial plantar , SUB MTH (s) , 1 , B/L, plantar heels B/L Orthopedic FOOTWEAR: shoe gear proper ties exacerbate patients foot/toe deformity MUSCLE STRENGTH: 5/5 all groups in a symmetrical fashion, B/L Vascular DP PULSES (B): 0/4, B/L PT PULSES (B): 0/4, B/L CAPILLARY FILL TIME: delayed, all digits , B/L TEMPERTURE GRADIENT (C): decreased, cool to cool, proximal to distal, B/L TROPHIC CONDITION-TEXTURE/ELASTICITY/TURGOR/HAIR GROWTH (B): decreased, B/L CLAUDICATION (C): denies, B/L REST PAIN: denies, B/L Nails NAILS are: Elongated, overg rown, dystrophic, lytic, greater than 3mm thick, discolored and friable with crumbly malodorous subungual debris, with pain on palpation, T1, T2, T3, T4, T6, T7, T8, T9 B/L
--- OUTSIDE RECORDS SUMMARY | 2024-06-05 13:53 | XMS_ITS ---
[facility] Name [facility] Results Test Name/Text Value Interpretation Date Range Source Est. average glucose Bld gHb Est-mCnc 105mg/dL Normal [id number] [facility] Hgb A1c MFr Bld 5.3% Normal [id number] - 5.7 H [facility] Vit B12 SerPl-mCnc 861pg/mL Normal [id number] 243 - 89 4 [facility] HDLc SerPl 4.5Ratio Normal [id number] 0 - 5 [facility] LDLc SerPl Calc-mCnc 220mg/dL Above high normal [id number] 2 - 130 [facility] HDLc SerPl-mCnc 67mg/dL Normal [id number] 39 - H [facility] Trigl SerPl-mCnc 66mg/dL Normal [id number] - 150 [facility] Cholest SerPl-mCnc 300mg/dL Above high normal [id number] - 200 [facility] TSH SerPl DL<=0.005 mIU/L-aCnc 2.08mIU/L Normal [id number] 0.27 - 4.2 [facility] Troponin T SerPl-mCnc 12ng/L Normal [id number] - 15 [facility] Delta Normal [id number] - 3 [facility] Globulin Ser Calc-mCnc 2.2g/dL Normal [id number] 1.5 - 3.9 [facility] ALT SerPl-cCnc 12U/L Normal [id number] 10 - 50 HH CCT AST SerPl-cCnc 19U/L Normal [id number] 10 - 50 HH CCT GFR/BSA.pred SerPlBld USU-KXW-XrPZsm 56 Below low normal [id number] 59 - [facility] Albumin SerPl-mCnc 4.1g/dL Normal [id number] 3.4 - 4. 8 [facility] Albumin/Glob SerPl 1.9Ratio Normal [id number] 1 - 3 [facility] Creat SerPl-mCnc 1mg/dL Normal [id number] 0.4 - 1.1 [facility] Bilirub SerPl-mCnc 0.7mg/dL Normal [id number] 0.2 - 1 [facility] Anion Gap Bld-sCnc 12 Normal [id number] 7 - 17 [facility] Sodium SerPl-sCnc 138mmol/L Normal [id number] 136 - 145 [facility] Potassium SerPl-sCnc 4.4mmol/L Normal [id number] 3.4 - 5.3 [facility] Chloride SerPl-sCnc 103mmol/L Normal [id number] 98 - 10 7 [facility] Glucose SerPl-mCnc 97mg/dL Normal [id number] 65 - 99 [facility] Prot SerPl-mCnc 6.3g/dL Normal [id number] 6.3 - 8.3 H [facility] BUN/Creat SerPl 15Ratio Normal [id number] 10 - 25 H [facility] Calcium SerPl-mCnc 9.5mg/dL Normal [id number] 8.7 - 10 .5 [facility] CO2 SerPl-sCnc 23mmol/L Normal [id number] 22 - 33 HH CCT BUN SerPl-mCnc 15mg/dL Normal [id number] 8 - 21 HH CCT ALP SerPl-cCnc 73U/L Normal [id number] 32 - 122 HH CCT Magnesium SerPl-mCnc 2.2mg/dL Normal [id number] 1.6 - 2.7 [facility] Imm Granulocytes/leuk NFr Bld Auto 0.1% Normal [id number] [facility] Lymphocytes/leuk NFr Bld Auto 31.6% Normal [id number] [facility] PMV Bld Auto 9.3fL Normal [id number] 7.5 - 12.[address] Monocytes num Bld Auto 0.46Thou/uL Normal [id number] 0. 2 - 1.5 [facility] Hct VFr Bld Auto 39.9% Normal [id number] 35 - 47 [facility] Neutrophils num Bld Auto 4.43Thou/uL Normal [id number] 2 - 7.5 [facility] Neutrophils/leuk NFr Bld Auto 59% Normal [id number] [facility] Basophils/leuk NFr Bld Auto 0.5% Normal [id number] [facility] Basophils num Bld Auto 0.04Thou/uL Normal [id number] 0 - 0.2 [facility] Monocytes/leuk NFr Bld Auto 6.1% Normal [id number] [facility] Eosinophil num Bld Auto 0.2Thou/uL Normal [id number] 0 - 0.7 [facility] MCH RBC Qn Auto 33.2pg Above high normal [id number] 27 - 31 [facility] Eosinophil/leuk NFr Bld Auto 2.7% Normal [id number] [facility] Imm Granulocytes num Bld Auto 0.01Thou/uL Normal [id number] 0 - 0.1 [facility] RDW RBC Auto-Rto 12.8% Normal [id number] 11.5 - 14. 5 [facility] Platelet num Bld Auto 232Thou/uL Normal [id number] 150 - 450 [facility] MCHC RBC Auto-mCnc 32.8g/dL Normal [id number] 30 - 36 [facility] MCV RBC Auto 101fL Above high normal [id number] 80 - 1 00 [facility] WBC num Bld Auto 7.5Thou/uL Normal [id number] 4 - 11 [facility] RBC num Bld Auto 3.95Mil/uL Below low normal [id number] 4 - 5.4 [facility] Hgb Bld-mCnc 13.1g/dL Normal [id number] 11.7 - 15.7 HH CCT Lymphocytes num Bld Auto 2.38Thou/uL Normal [id number] 1.5 - 4.5 [facility]
--- OUTSIDE RECORDS SUMMARY | 2024-06-05 13:54 | XMS_ITS ---
Author Organization [facility] Address [address] [place] [address] Care Team Providers Care Rental Sales Agent Name Role Phone Tracy Holloway Primary Care Provider Unav ailable Junie Rodríguez Unavailable [phone] REASON FOR VISIT 05/31/24 appt Encounters Encounter Location Date Provider [facility] [address] 05/29/2024 Junie Rodríguez Plan Of Treatment Next Appt Details Provider Name:Junie agrawal, 08/15/2024 03:30:00 PM, [address] [place], [address], Progress Notes * Rocío CHRISTIAN UDOB: [birth year] (83 yo F)Acc No.[id number]:05/29/2024 Patient:?ANAHI Rocío Machado :1940???Age:83 Y???Sex:Female Address:[address] [place], [address] * true * Date:? Generated for Printi frantz/Charu/eTransmitting on:?06/05/2024 01:53 PM EDT
--- OUTSIDE RECORDS SUMMARY | 2024-06-05 13:54 | XMS_ITS | Clinical Summary ---
Author Organization [address] [place] [address] [place] [phone] Phone Care Team Providers Care Shoe Stitcher Name Role Phone Tracy Holloway MD Primary Care Pr ovider Allergies Active Allergy Reactions Criticality Noted Date Comments Lactose GI intolerance 02/05/2023 Tgeljtg-Piu-Abe Reductase Inhibitors 03/06/2019 myalgias Medications solifenacin (VESICARE) 5 mg tablet TAKE 1 TABLET BY MOUTH DAILY 90 tablet 1 4 Active calcium carb/vit D3/minerals (CALCIUM-VITAMIN D ORAL) Take by mouth daily. Active diclofenac (VOLTAREN) 1 % topical gel Apply 1 g topically 4 times daily as needed (pain). 4 Active zolpidem (AMBIEN) 5 mg tablet Take 1 Tablet by mouth at bedtime as needed for Insomnia. 4 Active aspirin 81 mg EC tabletIndication s:Asymptomatic stenosis of posterior cerebral artery Take 1 tablet (81 mg total) by mouth 1 (one) time each day. 90 tablet 1 4 025 Active rosuvastatin (Crestor) 5 mg tablet Take 1 tablet (5 mg total) by mouth 1 (one) time each day. 90 each 2 4 025 Active evolocumab (Repatha SureClick) 140 mg/mL pen injector injectionIndicat ions:Coronary artery disease due to calcified coronary lesion Inject 1 mL (140 mg total) under the skin every 14 (fourteen) days. 2 mL 6 5 Active lisinopril (PRINIVIL,ZESTRI L) 40 mg tabletIndication s:Primary hypertension Take 1 tablet (40 mg total) by mouth 1 (one) time each day. 90 each 1 5 025 Active fluticasone propionate (FLONASE) 50 mcg/actuation nasal spray Administer 2 sprays into each nostril 1 (one) time each day. Shake gently. Before first use, prime pump. After use, clean tip and replace cap. 16 g 5 5 026 Active amLODIPine (NORVASC) 5 mg tablet Take 1 tablet (5 mg total) by mouth 1 (one) time each day. 90 tablet 3 5 Active docusate sodium (Colace) 100 mg capsuleIndicatio ns:Chronic idiopathic constipation Take 2 capsules (200 mg total) by mouth 1 (one) time each day. 180 each 5 025 Active lactase (LACTAID ORAL) as directed on package 025 Discontin ued(Thera py completed ) Active Problems Problem Noted Date Diagnosed Date Moderate mitral regurgitation by prior echocardi ogram 05/12/2024 Overview (05/12/2024): Feb 2024 at [facility] HLD (hyperlipidemia) 03/20/2024 Assessment & Plan (05/12/2024 3:15 PM EST): She will continue on the Crestor daily and Repatha every 2 weeks Chest pressure 03/20/2024 Inferior pubic ramus fracture 11/18/2021 Overview (02/15/2024): 10/17 right pubic ramus fracture; MRI shows left inf and sup ramus fx and sacral fractures Urinary incontinence 08/18/2021 Assessment & Plan (03/16/2024 5:01 PM EST): Continue vesicare 5mg daily Cold sore 03/26/2020 Bunion 10/04/2019 Overview (02/15/2024): Bilateral defomrities, following with podiatry Dr. Santa, seen 09/08/2019 Trigger ring finger of left hand 07/28/2019 Benign head tremor 03/06/2019 DJD (degenerative joint disease) of knee 019 Lactose intolerance 03/06/2019 Rosacea 03/06/2019 Syncopal episodes 03/06/2019 Overview (02/15/2024): 11/2017: Carotid US 12/16/17 WNL, Holter Monitor (48 hour) WNL, ECHO mild MVR, mod tricuspid regurgitation, LVEF 55-65% Tricuspid regurgitation 03/06/2019 Overview (02/15/2024): TTE ECHO 12/20/17: mild MVR, mod tricuspid regurgitation, LVEF 55-65% PLMD (periodic limb movement disorder) 7 Snoring 09/18/2016 Overview (02/15/2024): 09/13/2016 Home Sleep Study did not reveal sleep apnea. + PLMD noted. Allergic rhinitis 11/17/2012 Depression 01/13/2012 Overview (02/15/2024): Doing better Insomnia 08/01/2010 Assessment & Plan (03/16/2024 5:01 PM EST): Continue ambien 5mg PRN . Using medication sparingly. Last filled in October. Not requesting Rx today. Not on CSC due to infrequent prescriptions Neck pain 08/01/2010 Microscopic hematuria 09/20/2009 Hypertension 09/27/2007 Assessment & Plan (05/12/2024 3:15 PM EST): Poorly controlled Continue lisinopril 40 mg daily. She will start the amlodipine 5 mg which was sent by cardiology on 05/08/2024 as soon as she receives it Follow-up for blood pressure check in 1 month Assessment & Plan (03/16/2024 5:01 PM EST): BP is poorly controlled. Increase lisinopril from 10mg to 40 mg daily F/u in 1 month for BP check She does not want to check her BP at home so home monitor will note be prescribed Orders: lisinopril (PRINIVIL,ZESTRIL) 40 mg tablet; Take 1 tablet (40 mg total) by mouth 1 (one) time each day. Osteopenia 08/26/2006 Overview (02/15/2024): spine, bone density 08/18/06, nl bone density 08/04 DXA 03/2020: Spine -1.0, hip -1.3; FRAX 10 year probability of major osteoporotic fracture: 13%; FRAX hip fracture: 3.1% Assessment & Plan (03/16/2024 5:01 PM EST): Continue daily vit D/calcium. Due for DXA scan which is ordered Orders: BD Bone Density DXA Axial Skeleton; Future Esophageal reflux 10/23/2005 Resolved Problems Problem Noted Date Diagnosed Date Resolved Date Pure hypercholesterolemia 10/23/2005 Assessment & Plan (03/16/2024 5:01 PM EST): Ideally she should be on a statin but unfortunately has been intolerant to statins in the past. She has significant hyperlipidemia. She was referred to cardiology for possible initiation of Repatha and has an upcoming appointment on 03/28/2024. Orders: Lipid panel with reflex to direct LDL; Future Encounters Date Type Department Care Team Description 05/23/2024 Telephone [facility] - [facility] [address] [facility] [address] [place] [address] Xavier Maldonado MD Blood Pressure 05/12/2024 2:00 PM EST Office Visit Adult Medicine [address] [phone] Tracy Holloway MD Primary hypertension (Primary Dx); Mixed hyperlipidemia; Chronic idiopathic constipation; Abnormal MRI of the head; Exposure to second hand tobacco smoke; Chest tightness; Valgus deformity, not elsewhere classified, unspecified knee; Nasal congestion 05/08/2024 2:00 PM EST Clinical Support [facility] - [facility] [address] [facility] [address] [place] [address] Primary hypertension (Primary Dx) 04/28/2024 9:30 AM EST Clinical Support [facility] - [facility] [address] [facility] [address] [place] [address] 04/20/2024 10:00 AM EST Office Visit Adult Medicine [address] [phone] Fatou Mast PA Viral upper respiratory tract infection (Primary Dx); Malaise and fatigue; Primary hypertension 04/20/2024 Telephone Adult [address] [phone] Deepthi Greenwood RN 04/19/2024 Nurse Triage Adult [address] [phone] Tracy Holloway MD Nasal Congestion; Head Cold; Headache 04/19/2024 Telephone [facility] - [facility] [address] [facility] [address] [place] [address] Xavier Maldonado MD medication 04/10/2024 Telephone [facility] - [facility] [address] [facility] [address] [place] [address] Xavier Maldonado MD lisinopril (PRINIVIL,ZESTRIL) 40 mg tablet (lisinopril (PRINIVIL,ZESTRIL) 40 mg tablet//) 04/05/2024 Telephone [facility] - [facility] [address] [facility] [address] [place] [phone] Xavier Maldonado MD Medication Problem (Medication Question) 04/03/2024 Telephone Adult [address] [phone] Tracy Holloway MD Results 03/30/2024 Telephone [facility] - [facility] [address] [place] [phone] Xavier Maldonado MD Prior Authorization (Repatha Sureclick 140MG/ML) 03/28/2024 1:30 PM EST Office Visit [facility] - [address] [facility] [address] [place] [phone] Xavier Maldonado MD Coronary artery disease due to calcified coronary lesion (Primary Dx); Mixed hyperlipidemia; HTN (hypertension); HLD (hyperlipidemia); Chest pain 03/27/2024 Telephone Adult Medicine [address] [phone] Deepthi Greenwood RN 03/21/2024 10:45 AM EST - 03/21/2024 11:59 PM EST Hospital Encounter Radiology Department [address] [phone] Asymptomatic stenosis of posterior cerebral artery; Dizziness; Pre-syncope Discharge Disposition: Home or Self Care 03/16/2024 10:30 AM EST Office Visit Adult [address] [phone] Tracy Holloway MD Hospital discharge follow-up (Primary Dx); Asymptomatic stenosis of posterior cerebral artery; Dizziness; Pre-syncope; Primary hypertension; Osteopenia, unspecified location; Pure hypercholesterolemia ; Urge incontinence of urine; Primary insomnia; Macrocytosis 03/10/2024 8:00 AM EST - 03/10/2024 1:06 PM EST Emergency [facility] Emergency [address] [place] [phone] Tyler Barragan MD General weakness (Primary Dx); Dehydration Discharge Disposition: Home or Self Care 03/10/2024 Telephone Adult Medicine [address] [phone] Tracy Holloway MD Hospital Follow-up ([facility] ) from Last 3 Months Immunizations Name Administration Dates Next Due Influenza Quadravalent, MDCK , 0.5ml, with preservative (Flucelvax) 6mo and older 01/28/2017 Influenza trivalent, 0.5mL ( Fluad) 65yo and older 01/21/2023,02/24/2022,01/22/2021,01/17,12/06/2014 Influenza trivalent, 0.5mL, preservative free (Fluarix; FluLaval; Fluzone) ages 6mo and older (Afluria) 3 years and older 01/18/2020,01/24/2019,01/08/2016,01/02,12/27/2012,12/24/2011,01/23/2011 ,01/30/2010,01/03/2009,12/15/2007,12/29,01/22/2006,01/20/2005 Pfizer SARS-CoV-2 COVID-19, mRNA, LNP-S, preservative free 03/04/2022,01/08/2021,05/24/2020,05/03 Pneumococcal conjugate 13 va lent (Prevnar 13, PCV13) 2mo and older 12/20/2014 Pneumococcal polysaccharide 23 valent (Pneumovax 23) 2yo and older 10/23/2005 Td Tetanus diptheria (Tdvax) 7yo and older 03/14/2003 Tdap Tetanus diptheria acell ular pertussis (Boostrix; Adacel) 7yo and older 05/21/2017 Zoster Live 01/26/2008 Zoster recombinant (Shingrix ) 19yo and older 06/23/2021,04/23/2021 Surgical History Surgery Date Site/Laterality Comments CATARACT EXTRACTION Bilateral PROCEDURE: HISTORICAL CATARACT REMOVAL TONSILLECTOMY PROCEDURE: HISTORICAL TONSILLECTOMY Medical History Medical History Date Comments Allergic rhinitis 11/17/2012 DX:Allergic rh initis Benign head tremor 03/06/2019 DX:Benign hea d tremor Chest pain 09/27/2007 DX:Chest pain; C OMMENT: Normal nuclear stress test 02/01 Depression 01/13/2012 DX:Depression Diffuse cystic mastopathy 01/07/2007 DX:Dif fuse cystic mastopathy; COMMENT: stable mammogram 02/09/08 DJD (degenerative joint dise ase) of knee 03/06/2019 DX:DJD (degenerative joint d isease) of knee Esophageal reflux 10/23/2005 DX:Esophageal reflux Family history of colonic polyps 08/03/2006 DX:Family history of colonic polyps; COMMENT: Nl colonoscopy to cecum Dr Lisa 03/04/05 Heart valve disease 03/06/2019 DX:Heart divine ve disease; COMMENT: TTE ECHO 12/20/17: mild MVR, mod tricuspid regurgitation, LVEF 55-65% Hypertension 09/27/2007 DX:Hypertension Insomnia 08/01/2010 DX:Insomnia Lactose intolerance 03/06/2019 DX:Lactose i ntolerance Microscopic hematuria 09/20/2009 DX:Microsc opic hematuria Neck pain 08/01/2010 DX:Neck pain Osteopenia 08/26/2006 DX:Osteopenia; C OMMENT: spine, bone density 08/18/06, nl bone density 08/04 PLMD (periodic limb movement disorder) 09/18/2016 DX:PLMD (periodic limb movem ent disorder) Pure hypercholesterolemia 10/23/2005 DX:Pur e hypercholesterolemia Rosacea 03/06/2019 DX:Rosacea Skin lesion 08/16/2008 DX:Skin lesion; COMMENT: Nose. Seen by Dr Barkley 11/03 who recommended appt with plastic surgeon, who advised her he does not recommmend bx. Per pt Snoring 09/18/2016 DX:Snoring; COMM ENT: 09/13/2016 Home Sleep Study did not reveal sleep apnea. + PLMD noted. Syncopal episodes 03/06/2019 DX:Syncopal ep isodes; COMMENT: 11/2017: Carotid US 12/16/17 WNL, Holter Monitor (48 hour) WNL, ECHO mild MVR, mod tricuspid regurgitation, LVEF 55-65% Inferior pubic ramus fractur e (CMS/HCC) 11/18/2021 DX:Inferior pubic ramus frac ture (HCC); COMMENT: 10/17 right pubic ramus fracture Family History Medical History Relation Name Comments Colon cancer Brother Depression Brother Coronary artery disease Father HTN, HLD, Stroke, Depression Lung cancer Mother tobacco Other: tremor Sister Leukemia Son tremor Relation Name Status Comments Brother Father Mother Sister Son Social History Tobacco Use Types Packs/Day Years Used Date Smoking Tobacco: Never Smokeless Tobacco: Never Tobacco Cessation:Counseling Given: Not Answered Alcohol Use Standard Drinks/Week Comments Yes 0 (1 standard drink = 0.6 oz pur e alcohol) Comments Unknown Sex and Gender Information Value Date Recorded Sex Assigned at Female 03/10/2024 9:53 AM EST Legal Sex Female 7:52 PM EST Gender Identity Female 03/10/2024 9:53 AM EST Sexual Orientation Not on file Obstetrics History Last Filed Vital Signs Vital Sign Reading Time Taken Comments Blood Pressure 158/66 05/12/2024 2:07 PM EST AV Pulse 69 05/12/2024 2:07 PM EST Temperature 36.7 ??C (98 ??F) 05/12/2024 2:01 PM EST Respiratory Rate 16 05/12/2024 2:01 PM EST Oxygen Saturation 98% 04/28/2024 9:16 AM EST Inhaled Oxygen Concentration - - Weight 55.8 kg (123 lb) 05/12/2024 2:01 PM EST Height 154.9 cm (5' 1 ) 05/12/2024 2:01 PM EST Body Mass Index 23.24 05/12/2024 2:01 PM EST Plan of Treatment Upcoming Encounters Date Type Department Care Team (Late st Contact Info) Description 06/14/2024 2:15 PM EDT Office Visit Adult Medicine [address] [phone] Junie Leach PA [address] [place] [address] 06/19/2024 9:00 AM EDT Office Visit Urogynecology - [address] [phone] Shaniqua Francois MD [address] [place] [address] 07/31/2024 9:00 AM EDT Office Visit Adult [address] [phone] Tracy Holloway MD [address] [place] [address] 08/02/2024 10:40 AM EDT Office Visit [facility] [address] [facility] [address] [place] [phone] Lisa Hutchinson NP [address] [place] [address] 09/25/2024 1:00 PM EDT Office Visit Urogynecology - [place] [address] [place] [phone] Shaniqua Francois MD [address] [facility] [address] [place] [address] Health Maintenance Due Date Last Done Comments Depression Screening 02/28/2022 Falls Risk Assessment 02/28/2022 Social Influencers of Health Screening 02/28/2022 COVID-19 Vaccine ( season) 2023 01/28/2023, 03/04/2022, 07/17/2021, Additional history exists Hypertension/CHF/CAD Annual BMP Blood Test 03/10/2025 03/10/2024, 03/08/2024, 08/17/2023, Additional history exists DTaP,Tdap,and Td Vaccines (3 - Td or Tdap) 05/21/2027 05/21/2017, 03/14/2003 Cholesterol Screening (Lipid Panel) 03/16/2029 03/16/2024, 03/09/2024, 08/17/2023, Additional history exists Osteoporosis Screening (Bone Density Screening) 04/23/2031 04/23/2021 Pneumococcal Vaccine: 50+ Years Completed 12/20/2014, 10/23/2005 Zoster Vaccines Completed 06/23/2021, 03/30, 01/26/2008 Influenza Vaccine Completed 01/20/2024, , 02/24/2022, Additional history exists RSV Immunization Patients 60+ Years Old Completed 03/17/2024 HIB Vaccines Aged Out No longer eligi ble based on patient's age to complete this topic HPV Vaccines Aged Out No longer eligi ble based on patient's age to complete this topic Hepatitis A Vaccines Aged Out No long er eligible based on patient's age to complete this topic Hepatitis B Vaccines Aged Out No long er eligible based on patient's age to complete this topic IPV Vaccines Aged Out No longer eligi ble based on patient's age to complete this topic MMR Vaccines Aged Out No longer eligi ble based on patient's age to complete this topic Meningococcal ACWY Vaccine Aged Out N o longer eligible based on patient's age to complete this topic Meningococcal B Vacine Aged Out No lo nger eligible based on patient's age to complete this topic RSV Immunization Patients Under 20 months Aged Out No longer eligible based on patient's age to complete this topic Varicella Vaccines Aged Out No longer eligible based on patient's age to complete this topic Procedures Procedure Name Priority Date/Time Associated Diagnosis Comments THYROID STIMULATING HORMONE WITH REFLEX TO FREE T4 AND FREE T3 Routine 05/12/2024 2:59 PM EST Chronic idiopathic constipation [id number], RSV, FLU A AND B QUALITATIVE RT-PCR, LOCAL REFERENCE LAB Routine 04/20/2024 10:23 AM EST Viral upper respiratory tract infection ECG 12-LEAD Routine 03/28/2024 1:37 PM EST Mixed hyperlipidemia MR BRAIN WO AND W CONTRAST Routine 03/21/2024 12:17 PM EST Asymptomatic stenosis of posterior cerebral artery Dizziness Pre-syncope LIPID PANEL WITH REFLEX TO DIRECT LDL Routine 03/16/2024 11:46 AM EST Pure hypercholesterolemia FOLATE Routine 03/16/2024 11:46 AM EST Macrocytosis TROPONIN I HIGH SENSITIVITY STAT 03/10/2024 9:46 AM EST CBC WITH AUTO DIFFERENTIAL STAT 03/10/2024 9:02 AM EST TROPONIN I HIGH SENSITIVITY STAT 03/10/2024 9:02 AM EST PROTHROMBIN TIME WITH INR STAT 03/10/2024 9:02 AM EST MAGNESIUM STAT 03/10/2024 9:02 AM EST BASIC METABOLIC PANEL STAT 03/10/2024 9:02 AM EST CBC AND DIFFERENTIAL STAT 03/10/2024 9:02 AM EST ECG 12-LEAD STAT 03/10/2024 8:36 AM EST DXA BONE DENSITY STUDY 1+ SITS AXIAL SKEL Routine 04/23/2021 10:08 AM EST Other specified disorders of bone density and structure, unspecified site from Last 3 Months or Most Recently Relevant to Health Maintenance Results * Thyroid stimulating hormone with reflex to free t4 and free t3 (05/12/2024 2:59 PM EST) [facility] TSH 2.37 0.40 - 4.00 mcIU/mL LAB CHEMISTRY METHOD 05/12/2024 6:59 PM EST [facility] Blood Venous blood specimen / Unknown Venipuncture / Unknown 05/12/2024 2:59 PM EST 05/12/2024 3:00 PM EST Tracy Holloway MD LAB BLOOD ORDERA BLES Final Result [facility] [address] [place] [address], * (ABNORMAL) [id number], RSV, Influenza A and B qualitative RT-PCR (04/20/2024 10:23 AM EST) [facility] SARS COV-2 Not Detected Not Detected LAB MOLECULAR DIAGNOSTICS METHOD 04/20/2024 4:10 PM EST [facility] Comment: Disclaimer: The manner in which this information is used to guide patient care is the responsibility of the healthcare provider. Testing was performed using the SYLLETA Alinity m SARS-CoV-2 test. This test has been authorized by FDA under an Emergency Use Authorization (EUA). This test is only authorized for the duration of time the declaration that circumstances exist justifying the authorization of the emergency use of in vitro diagnostic tests for detection of SARS-CoV-2 virus and/or diagnosis of COVID-19 infection under section 564(b)(1) of the Act, 21 U.S.C. 360bbb- 3(b)(1), unless the authorization is terminated or revoked sooner. Fact sheet for Healthcare Providers can be found at: https://www.fda.gov/media/672337/download Fact sheet for Patients can be found at: https://www.fda.gov/media/073035/download Influenza A PCR Detected(A ) Not Detected LAB MOLECULAR DIAGNOSTICS METHOD 04/20/2024 4:10 PM EST [facility] Influenza B PCR Not Detected Not Detected LAB MOLECULAR DIAGNOSTICS METHOD 04/20/2024 4:10 PM EST [facility] RSV PCR Not Detected Not Detected LAB MOLECULAR DIAGNOSTICS METHOD 04/20/2024 4:10 PM [facility] Swab Nasopharyngeal structure / Unknown Non-blood Collection / Unknown 04/20/2024 10:23 AM EST 04/20/2024 10:25 AM EST Fatou NORRIS LAB MICROBIOLOGY - GENER AL ORDERABLES Final Result [facility] [address] [place] [address], * ECG 12 lead (03/28/2024 1:37 PM EST) Only the most recent of2 resultswithin the time period is included. Ventricular Rate ECG 62 BPM GEMUSE Atrial Rate 62 BPM GEMUSE P-R Interval 186 ms GEMUSE QRS Duration 106 ms GEMUSE Q-T Interval 408 ms GEMUSE QTc 414 ms GEMUSE P Wave [place] 52 degrees GEMUSE R [place] -25 degrees GEMUSE T [place] 84 degrees GEMUSE ECG Interpretation Normal sinus rhythm Nonspecific ST abnormality Abnormal ECG When compared with ECG of 10-MAR-2024 08:36, No significant change was found Confirmed by MD Joel, Xavier ([id number]) on 03/28/2024 2:01:50 PM GEMUSE 03/28/2024 1:37 PM EST 03/28/2024 2:01 PM EST us Xavier Maldonado MD ECG ORDERABLES Final Res ult GEMUSE * MR Brain wo and w Contrast (03/21/2024 12:17 PM EST) Anatomical Region Laterality Modality Head and Neck Magnetic Resonan ce 03/22/2024 12:5 5 AM EST Narrative 03/22/2024 1:11 AM EST MRI of the head without and with intravenous contrast. History nonspecific dizziness. Examination was performed on 1.5 Karime magnet without intravenous contrast followed by postcontrast study after administration of 12 mL of DOTAREM. No prior MRI examinations are available for comparison. CT of the head and CTA of the great vessels of the neck and head obtained on 03/08/2024 was reviewed. There is probably age related cortical atrophy mostly involving are frontoparietal areas. There is no evidence of midline shift, extra or intra-axial blood fluid collections. There is no visible masses or mass effect in the brain and cerebellum. There is extensive supratentorial white matter disease involving are subcortical deep and periventricular white matter of both cerebral hemispheres. There is arm mild white matter disease in the central aspect of the reggie. There is no associated restricted diffusion or enhancement. It is most likely due to chronic white matter ischemia. No focal signal abnormalities are identified in the cerebellum. Ventricular system is symmetric and normal in size. Fourth ventricle and basal cisterns are midline and patent. Paranasal sinuses and mastoid processes are aerated. CONCLUSIONS: Probably age related atrophic changes in the frontoparietal regions bilaterally. Extensive nonspecific supratentorial white matter signal abnormalities, most likely due to chronic small vessel ischemia. Mild signal abnormalities in the central aspect of the reggie. Please correlate clinically. -------- FINAL REPORT -------- Dictated By: Dominique Michel Dictated Date: 03/22/2024 00:55 ET Assigned Physician: Dominique Michel Reviewed and Electronically Signed By: Dominique Michel Signed Date: 03/22/2024 01:11 ET Workstation ID: [id number] Transcribed By: Self Edit Transcribed Date: 03/22/2024 00:55 ET Procedure Note Dominique Michel MD - 03/22/2024 MRI of the head without and with intravenous contrast. History nonspecific dizziness. Examination was performed on 1.5 Karime magnet without intravenous contrastfollowed by postcontrast study after administration of 12 mL of DOTAREM.No prior MRI examinations are available for comparison. CT of the head andCTA of the great vessels of the neck and head obtained on 03/08/2024 wasreviewed. There is probably age related cortical atrophy mostly involving arefrontoparietal areas. There is no evidence of midline shift, extra orintra-axial blood fluid collections. There is no visible masses or masseffect in the brain and cerebellum. There is extensive supratentorial white matter disease involving aresubcortical deep and periventricular white matter of both cerebralhemispheres. There is arm mild white matter disease in the central aspectof the reggie. There is no associated restricted diffusion or enhancement.It is most likely due to chronic white matter ischemia. No focal signalabnormalities are identified in the cerebellum. Ventricular system issymmetric and normal in size. Fourth ventricle and basal cisterns aremidline and patent. Paranasal sinuses and mastoid processes are aerated. CONCLUSIONS: Probably age related atrophic changes in the frontoparietalregions bilaterally. Extensive nonspecific supratentorial white mattersignal abnormalities, most likely due to chronic small vessel ischemia.Mild signal abnormalities in the central aspect of the reggie. Pleasecorrelate clinically. -------- FINAL REPORT -------- Dictated By: Dominique Michel Dictated Date: 03/22/2024 00:55 ET Assigned Physician: Dominique Michel Reviewed and Electronically Signed By: Dominique Michel Signed Date: 03/22/2024 01:11 ET Workstation ID: [id number] Transcribed By: Self Edit Transcribed Date: 03/22/2024 00:55 ET Tracy Holloway MD IMG MRI PROCEDUR ES Final Result * (ABNORMAL) Lipid panel with reflex to direct LDL (03/16/2024 11:46 AM EST) Cholesterol 298(H) 0 - 200 mg/dL LAB CHEMISTRY METHOD 03/16/2024 2:55 PM EST [facility] Triglycerides 96 0 - 150 mg/dL LAB CHEMISTRY METHOD 03/16/2024 2:55 PM EST [facility] HDL 77 >=40 mg/dL LAB CHEMISTRY METHOD 03/16/2024 2:55 PM EST [facility] LDL Calculated 202(H) 0 - 100 mg/dL LAB CHEMISTRY METHOD 03/16/2024 2:55 PM EST [facility] VLDL Cholesterol Jere 19.2 mg/dL LAB CHEMISTRY METHOD 03/16/2024 2:55 PM EST [facility] Non HDL Chol. (LDL+VLDL) 221(H) <145 mg/dL LAB CHEMISTRY METHOD 03/16/2024 2:55 PM EST [facility] Chol/HDL Ratio 3.9 0.0 - 4.4 LAB CHEMISTRY METHOD 03/16/2024 2:55 PM EST [facility] Blood Venous blood specimen / Unknown Venipuncture / Unknown 03/16/2024 11:46 AM EST 03/16/2024 11:46 AM EST Tracy Holloway MD LAB BLOOD ORDERA BLES Final Result [facility] [address] [place] [address], [place] [phone] * (ABNORMAL) Folate (03/16/2024 11:46 AM EST) [facility] Folate >20.0(H) 2.8 - 17.0 ng/ml LAB CHEMISTRY METHOD 03/16/2024 3:10 PM EST [facility] Blood Venous blood specimen / Unknown Venipuncture / Unknown 03/16/2024 11:46 AM EST 03/16/2024 11:46 AM EST Tracy Holloway MD LAB BLOOD ORDERA BLES Final Result Performing Organization Address [facility]/ZIP Co de Phone Number [facility] [address] [place] [address], [place] [phone] * Troponin I high sensitivity (03/10/2024 9:46 AM EST) Only the most recent of2 resultswithin the time period is included. [facility] High Sensitivity Troponin I 9 <=54 ng/L LAB CHEMISTRY METHOD 03/10/2024 11:41 AM EST [facility] Blood Venous blood specimen / Unknown Venipuncture / Unknown 03/10/2024 9:46 AM EST 03/10/2024 11:08 AM EST Narrative [facility] - 03/10/2024 11:41 AM EST High levels of biotin in samples may falsely decrease hsTroponin values. ??Use caution when interpreting hsTroponin results in patients taking biotin who exhibit renal impairment (eGFR <60) or in patients taking more than 20 mg/day of biotin. us Jo [facility]RIS LAB BLOOD ORDERABLES Final Resu lt Performing Organization Address [facility]/ZIP Co de Phone Number [facility] [address] [place] [address], [place] [phone] * (ABNORMAL) CBC auto differential (03/10/2024 9:02 AM EST) [facility] WBC 6.8 4.8 - 10.8 [facility] LAB HEMETOLOGY METHOD 03/10/2024 9:16 AM [facility] RBC 4.20 3.80 - 4.80 M/mcL LAB HEMETOLOGY METHOD 03/10/2024 9:16 AM [facility] Hemoglobin 13.4 11.5 - 16.0 g/dL LAB HEMETOLOGY METHOD 03/10/2024 9:16 AM [facility] Hematocrit 41.4 35.0 - 47.0 % LAB HEMETOLOGY METHOD 03/10/2024 9:16 AM [facility] MCV 99.8(H) 79.0 - 98.0 FL LAB HEMETOLOGY METHOD 03/10/2024 9:16 AM [facility] MCH 32.3(H) 27.0 - 32.0 pcg LAB HEMETOLOGY METHOD 03/10/2024 9:16 AM [facility] MCHC 32.4 32.0 - 37.0 g/dL LAB HEMETOLOGY METHOD 03/10/2024 9:16 AM [facility] RDW 13.2 11.0 - 15.0 % LAB HEMETOLOGY METHOD 03/10/2024 9:16 AM [facility] Platelets 231 130 - 400 K/[facility] LAB HEMETOLOGY METHOD 03/10/2024 9:16 AM [facility] MPV 9.8 7.0 - 11.0 FL LAB HEMETOLOGY METHOD 03/10/2024 9:16 AM [facility] NRBC 0.0 <1.0 % LAB HEMETOLOGY METHOD 03/10/2024 9:16 AM [facility] NRBC Absolute 0.00 <0.10 K/[facility] LAB HEMETOLOGY METHOD 03/10/2024 9:16 AM [facility] Neutrophils Relative 53.5 % LAB HEMETOLOGY METHOD 03/10/2024 9:16 AM [facility] Lymphocytes Relative 33.6 % LAB HEMETOLOGY METHOD 03/10/2024 9:16 AM [facility] Monocytes Relative 6.8 % LAB HEMETOLOGY METHOD 03/10/2024 9:16 AM [facility] Eosinophils Relative 5.1 % LAB HEMETOLOGY METHOD 03/10/2024 9:16 AM [facility] Basophils Relative 0.9 % LAB HEMETOLOGY METHOD 03/10/2024 9:16 AM [facility] Immature Granulocytes Relative 0.1 % LAB HEMETOLOGY METHOD 03/10/2024 9:16 AM [facility] Neutrophils Absolute 3.64 1.50 - 7.00 K/mcL LAB HEMETOLOGY METHOD 03/10/2024 9:16 AM [facility] Lymphocytes Absolute 2.29 1.00 - 5.00 K/mcL LAB HEMETOLOGY METHOD 03/10/2024 9:16 AM [facility] Monocytes Absolute 0.46 0.20 - 1.00 K/mcL LAB HEMETOLOGY METHOD 03/10/2024 9:16 AM [facility] Eosinophils Absolute 0.35 0.00 - 0.50 K/mcL LAB HEMETOLOGY METHOD 03/10/2024 9:16 AM [facility] Basophils Absolute 0.06 0.00 - 0.20 K/mcL LAB HEMETOLOGY METHOD 03/10/2024 9:16 AM [facility] Immature Granulocytes Absolute 0.01 0.00 - 0.03 K/mcL LAB HEMETOLOGY METHOD 03/10/2024 9:16 AM [facility] Blood Venous blood specimen / Unknown Venipuncture / Unknown 03/10/2024 9:02 AM EST 03/10/2024 9:11 AM EST us Jo [facility] LAB BLOOD ORDERABLES Final Resu lt Performing Organization Address [facility]/ZIP Co de Phone Number [facility] [address] [place] [address], [place] [phone] * Prothrombin time with INR (03/10/2024 9:02 AM EST) Pathologist [facility] Protime 11.3 10.6 - 13.9 sec LAB COAGULATION METHOD 03/10/2024 9:25 AM EST [facility] INR 0.9 LAB COAGULATION METHOD 03/10/2024 9:25 AM EST [facility] Blood Venous blood specimen / Unknown Venipuncture / Unknown 03/10/2024 9:02 AM EST 03/10/2024 9:11 AM EST us Jo [facility] LAB BLOOD ORDERABLES Final Resu lt Performing Organization Address [facility]/ZIP Co de Phone Number [facility] [address] [place] [address], [place] [phone] * Magnesium (03/10/2024 9:02 AM EST) [facility] Magnesium 2.1 1.9 - 2.6 mg/dL LAB CHEMISTRY METHOD 03/10/2024 9:33 AM EST [facility] Blood Venous blood specimen / Unknown Venipuncture / Unknown 03/10/2024 9:02 AM EST 03/10/2024 9:11 AM EST us Jo [facility] LAB BLOOD ORDERABLES Final Resu lt Performing Organization Address [facility]/ZIP Co de Phone Number [facility] [address] [place] [address], [place] [phone] * Basic metabolic panel (03/10/2024 9:02 AM EST) Sodium 142 133 - 145 mmol/L LAB CHEMISTRY METHOD 03/10/2024 9:33 AM [facility] Potassium 4.8 3.5 - 5.5 mmol/L LAB CHEMISTRY METHOD 03/10/2024 9:33 AM [facility] Chloride 107 96 - 110 mmol/L LAB CHEMISTRY METHOD 03/10/2024 9:33 AM [facility] CO2 27 21 - 32 mmol/L LAB CHEMISTRY METHOD 03/10/2024 9:33 AM [facility] Anion Gap 8 3 - 11 LAB CHEMISTRY METHOD 03/10/2024 9:33 AM [facility] Glucose 90 70 - 100 mg/dL LAB CHEMISTRY METHOD 03/10/2024 9:33 AM [facility] BUN 22 5 - 25 mg/dL LAB CHEMISTRY METHOD 03/10/2024 9:33 AM [facility] Creatinine 0.82 0.50 - 1.10 mg/dL LAB CHEMISTRY METHOD 03/10/2024 9:33 AM [facility] eGFR 71 >=60 mL/min/1. 73m2 LAB CHEMISTRY METHOD 03/10/2024 9:33 AM [facility] Comment:Calculation based on the??Chronic Kidney Disease Epidemiology Collaboration (CKD-EPI) equation refit??without adjustment for race. BUN/Creatinine Ratio 26.8 LAB CHEMISTRY METHOD 03/10/2024 9:33 AM [facility] Calcium 9.6 8.5 - 10.5 mg/dL LAB CHEMISTRY METHOD 03/10/2024 9:33 AM [facility] Blood Venous blood specimen / Unknown Venipuncture / Unknown 03/10/2024 9:02 AM EST 03/10/2024 9:11 AM EST us Jo [facility] LAB BLOOD ORDERABLES Final Resu lt [facility] [address] [place] [address], * DXA BONE DENSITY STUDY 1+ IMELDA GROVES (04/23/2021 10:08 AM EST) Anatomical Region Laterality Modality Bone Densitometr y 07/03/2020 2:10 PM EDT Narrative 04/23/2021 5:49 PM EST Clinical history: menopausal/postmenopausal disorder Scans of the lumbar spine and hips were performed on a [employer] fan beam bone densitometer. ? Bone mineral density measurements and associated T and Z scores respectively are as follows: Lumbar Spine: L1-L4 BMD: 0.933 g/cm2 ? T-Score: -1.0 ? Z-Score: 1.7 Compared with the prior study dated 12/24/2011, the BMD reading has decreased which is statistically significant Left Proximal Femur: Neck BMD: 0.707 g/cm2 ? T-Score: -1.3 ?? Z-Score: 1.1 Total BMD: 0.790 g/cm2 ? T-Score: -1.2 ?Z-Score: 0.9 Compared with the prior study the mean BMD reading in the total left hip has decreased which is statistically significant Compared with standards for the young adult, lowest measured bone density places the patient in the W.H.O. osteopenic range. FRAX 10 year probability of major osteoporotic fracture: 13% FRAX 10 year probability of hip fracture: 3.1% Population: [place] () IMPRESSION: IMPRESSION: Osteopenia. The NOF guidelines recommend that FDA approved medical therapies be considered in postmenopausal women and men age >50 years with a: i. Hip or vertebral (clinical or morphometric) fracture ii. T score of < -2.5 at the spine or hip iii. 10 year fracture probability by FRAX of >3% for hip fracture, or >20% for major osteoporotic fracture PLEASE NOTE: ?? W.H.O. classification is based on lowest measured density at the spine, femoral neck, or total hip.This classification has prognostic significance when applied to post menopausal women and older men. 1) ??The World Health Organization defines low BMD as follows: ?T-score ? Normal ? at or > -1 Osteopenia ? < -1 and ??> - 2.5 Osteoporosis ? at or < -2.5 without fractures Established osteoporosis ? < -2.5 with fractures Procedure Note Vikram Quintero MD - 03/17/2022 Clinical history: menopausal/postmenopausal disorder Scans of the lumbar spine and hips were performed on a [employer] beam bone densitometer. Bone mineral density measurements and associated T and Z scoresrespectively are as follows: Lumbar Spine: L1-L4 BMD: 0.933 g/cm2 T-Score: -1.0 Z-Score: 1.7 Compared with the prior study dated 12/24/2011, the BMD reading hasdecreased which is statistically significant Left Proximal Femur: Neck BMD: 0.707 g/cm2 T-Score: -1.3 Z-Score: 1.1 Total BMD: 0.790 g/cm2 T-Score: -1.2 Z-Score: 0.9 Compared with the prior study the mean BMD reading in the total left hiphas decreased which is statistically significant Compared with standards for the young adult, lowest measured bone densityplaces the patient in the W.H.O. osteopenic range. FRAX 10 year probability of major osteoporotic fracture: 13% FRAX 10 year probability of hip fracture: 3.1% Population: [place] () IMPRESSION: IMPRESSION: Osteopenia. The NOF guidelines recommend that FDA approved medical therapies beconsidered in postmenopausal women and men age >50 years with a: i. Hip or vertebral (clinical or morphometric) fracture ii. T score of < -2.5 at the spine or hip iii. 10 year fracture probability by FRAX of >3% for hip fracture, or >20%for major osteoporotic fracture PLEASE NOTE: W.H.O. classification is based on lowest measured density at the spine,femoral neck, or total hip.This classification has prognostic significance when applied to postmenopausal women and older men. 1) The World Health Organization defines low BMD as follows: T-score Normal at or > -1 Osteopenia < -1 and > -2.5 Osteoporosis at or < -2.5 withoutfractures Established osteoporosis < -2.5 with fractures Lisa NORRIS [facility] DXA PROCEDURES Final Result from Last 3 Months or Most Recently Relevant to Health Maintenance Insurance [employer] Care Teams Shoe Stitcher Relationship Specialty Start Date End Date Trayc Holloway MD [address] [place] [id number] PCP - General 01/12/23
--- OUTSIDE RECORDS SUMMARY | 2024-06-05 13:54 | XMS_ITS | Encounter Summary ---
Author Organization [facility] Address [address] [place] [address] Care Team Providers Care Independent Crop Consultant Name Role Phone Tracy Holloway MD Primary Care Pr ovider Reason for Visit * Reason Comments Blood Pressure Check Per Dr. Maldonado Encounter Details Date Type Department Care Team (Latest Contact Info) Description 05/08/2024 2:00 PM EST Clinical Support [facility] [address] [facility] [address] [place] [address] Primary hypertension (Primary Dx) Social History Tobacco Use Types Packs/Day Years [...] on file documented as of this encounter Ordered Prescriptions Prescription Sig Dispense Quantity Refills Last Filled Start Date End Date amLODIPine (NORVASC) 5 mg tablet Take 1 tablet (5 mg total) by mouth 1 (one) time each day. 90 tablet 3 05/08/2024 documented in this encounter Progress Notes * Kalpesh Seaman MA - 05/08/2024 2:00 PM EST Pt presented to office for a BP check per Dr. Maldonado. Dr. Maldonado stated in note on 03/28/2024 that ptshould return for f/u BP in office and if it is still high pt should be started on Amlodipine 5 mg qd. Pt also brought home cuff today. BP with home cuff was 159/82. In office BP cuff was 160/72. Pt is agreeable per dr. Maldonado to stat the Amlodipine 5 mg. I sent it to the pharmacy per pt request. She will call back office in 2 weeks to report her home BP #'s. Pt will call us beforehand if she has anyfurther questions or concerns. Lisa Hutchinson N.Melvin. is aware of plan and is in agreement with Dr. Maldonado. LATASHAI and thank you Dr. Maldonado and Lisa. documented in this encounter Plan of Treatment Upcoming Encounters Date Type Department Care Team (Late st Contact Info) Description 06/14/2024 2:15 PM EDT Office Visit Adult [address] [phone] Junie Leach PA [address] [place] [address] 06/19/2024 9:00 AM EDT Office Visit Urogynecology - [address] [phone] Shaniqua Francois MD [address] [place] [phone] 07/31/2024 9:00 AM EDT Office Visit Adult Medicine [address] [phone] Tracy Holloway MD [address] [place] [address] 08/02/2024 10:40 AM EDT Office Visit [facility] [address] [phone] Lisa Hutchinson, BOBBY [address] [facility] [address] [place] [address] 09/25/2024 1:00 PM EDT Office Visit Urogynecology [facility] [address] [place] [address] Shaniqua Francois MD [address] [facility] [address] [place] [address] documented as of this encounter Visit Diagnoses Diagnosis Primary hypertension- Primary Unspecified essential hypertension documented in this encounter Additional Health Concerns Infection Onset Date Last Indicated Resolved Time Influenza 04/20/2024 04/20/2024 05/14/2024 7:06 PM EST documented as of this encounter Care Teams Independent Crop Consultant Relationship Specialty Start Date End Date Tracy Holloway MD [address] [place] [address] PCP - General 01/12/23 documented as of this encounter
--- OUTSIDE RECORDS SUMMARY | 2024-06-05 13:54 | XMS_ITS | Encounter Summary ---
Author Organization [facility] Address [address] [place] [address] Care Team Providers Care Hand Violin Maker Name Role Phone Tracy Holloway MD Primary Care Pr ovider Reason for Referral * Therapy (Routine) - Pending Review Specialty Diagnoses / Procedures Referred By Contyehuda t Referred To Contact Pulmonology Diagnoses Exposure to second hand tobacco smoke Chest tightness Procedures Pulmonary function testing: Spirometry, Spirometry with Bronchodilator, Carbon Monoxide Diffusing Capacity Tracy Holloway MD [address] [place] [phone] Phone: tel: fax: [facility] [address] [place] [address] Phone: tel: Referral ID Status Reason Start Date Expiration Date V isits Requested Visits Authorized [id number] Pending Review 05/12/2024 05/12/2025 1 1 Reason for Visit * Reason Comments Hypertension Encounter Details Date Type Department Care Team (Late st Contact Info) Description 05/12/2024 2:00 PM EST Office Visit Adult Medicine [address] [phone] Tracy Holloway MD [address] [place] [id number] Primary hypertension (Primary Dx); Mixed hyperlipidemia; Chronic idiopathic constipation; Abnormal MRI of the head; Exposure to second hand tobacco smoke; Chest tightness; Valgus deformity, not elsewhere classified, unspecified knee; Nasal congestion Social History Tobacco Use Types Packs/Day Years [...] on file documented as of this encounter Last Filed Vital Signs Vital Sign Reading Time Taken Comments Blood Pressure 158/66 05/12/2024 2:07 PM EST AV Pulse 69 05/12/2024 2:07 PM EST Temperature 36.7 ??C (98 ??F) 05/12/2024 2:01 PM EST Respiratory Rate 16 05/12/2024 2:01 PM EST Oxygen Saturation - - Inhaled Oxygen Concentration - - Weight 55.8 kg (123 lb) 05/12/2024 2:01 PM EST Height 154.9 cm (5' 1 ) 05/12/2024 2:01 PM EST Body Mass Index 23.24 05/12/2024 2:01 PM EST documented in this encounter Patient Instructions * Attachments The following attachments cannot be sent through Care Everywhere. * Hyperlipidemia (Guamanian) documented in this encounter Ordered Prescriptions Prescription Sig Dispense Quantity Refills Last Filled Start Date End Date docusate sodium (Colace) 100 mg capsuleIndications :Chronic idiopathic constipation Take 2 capsules (200 mg total) by mouth 1 (one) time each day. 180 each 05/12/2024 documented in this encounter Progress Notes * Tracy Holloway MD - 05/12/2024 2:00 PM ESTAssociated Problem(s): Hypertension Poorly controlled Continue lisinopril 40 mg daily. She will start the amlodipine 5 mg which was sent by cardiology on05/08/2024 as soon as she receives it Follow-up for blood pressure check in 1 month * Tracy Holloway MD - 05/12/2024 2:00 PM ESTAssociated Problem(s): HLD (hyperlipidemia) She will continue on the Crestor daily and Repatha every 2 weeks * Tracy Holloway MD - 05/12/2024 2:00 PM EST Images from the original note were not included. Patient Education DASH Diet: Care Instructions Your Care Instructions The DASH diet is an eating plan that can help lower your blood pressure. DASH stands for Dietary Approaches to Stop Hypertension. Hypertension is high blood pressure. The DASH diet focuses on eating foods that are high in calcium, potassium, and magnesium. These nutrients can lower blood pressure. The foods that are highest in these nutrients are fruits, vegetables, low-fat dairy products, nuts, seeds, and legumes. But taking calcium, potassium, and magnesium supplements instead of eating foods that are high in those nutrients does not have the same effect. The DASH diet also includes whole grains, fish, and poultry. The DASH diet is one of several lifestyle changes your doctor may recommend to lower your high blood pressure. Your doctor may also want you to decrease the amount of sodium in your diet. Lowering sodium while following the DASH diet can lower blood pressure even further than just the DASH diet alone. Follow-up care is a jackson part of your treatment and safety. Be sure to make and go to all appointments, and call your doctor if you are having problems. It's also a good idea to know your test resultsand keep a list of the medicines you take. How can you care for yourself at home? Following the DASH diet Eat 4 to 5 servings of fruit each day. A serving is 1 medium-sized piece of fruit, 1/2 cup raw or canned fruit, 1/4 cup dried fruit, or 4 ounces (1/2 cup) of fruit juice. Choose fruit more often thanfruit juice. Eat 4 to 5 servings of vegetables each day. A serving is 1 cup of lettuce or raw leafy vegetables, 1/2 cup of chopped or cooked vegetables, or 4 ounces (1/2 cup) of vegetable juice. Choose vegetablesmore often than vegetable juice. Get 2 to 3 servings of low-fat and fat-free dairy each day. A serving is 8 ounces of milk, 1 cup ofyogurt, or 1?? ounces of cheese. Eat 6 to 8 servings of grains each day. A serving is 1 slice of bread, 1 ounce of dry cereal, or 1/2 cup of cooked rice, pasta, or cooked cereal. Try to choose whole-grain products as much as possible. Limit lean meat, poultry, and fish to 6 ounces or less each day. One egg counts as 1 ounce. Eat 4 to 5 servings of nuts, seeds, and legumes (cooked dried beans, lentils, and split peas) each week. A serving is 1/3 cup of nuts, 2 tablespoons of seeds, 2 tablespoons of peanut butter, or 1/2 cup of cooked beans or peas. Limit fats and oils to 2 to 3 servings each day. A serving is 1 teaspoon of vegetable oil or 2 tablespoons of salad dressing. Limit sweets and added sugars to 5 servings or less a week. A serving is 1 tablespoon jelly or jam,1/2 cup sorbet, or 1 cup of lemonade. Eat less than 2,300 milligrams (mg) of sodium a day. If you limit your sodium to 1,500 mg a day, you can lower your blood pressure even more. Be aware that all of these are the suggested number of servings for people who eat 1,800 to 2,000 calories a day. Your recommended number of servings may be different if you need more or fewer calories. Tips for success Start small. Make small changes, and stick with them. Once those changes become habit, add a few more changes. Try some of the following: Make it a goal to eat a fruit or vegetable at every meal and at snacks. This will make it easy to get the recommended amount of fruits and vegetables each day. Try yogurt topped with fruit and nuts for a snack or healthy dessert. Add lettuce, tomato, cucumber, and onion to sandwiches. Have a variety of cut-up vegetables with a low-fat dip as an appetizer instead of chips and dip. Sprinkle sunflower seeds or chopped almonds over salads. Or try adding chopped walnuts or almonds to cooked vegetables. Try some vegetarian meals using beans and peas. Add garbanzo or kidney beans to salads. Make burritos and tacos with mashed jung beans or black beans. Where can you learn more? Scan the QR code or Go to https://www.[employer].net/shawnee Enter H967 in the search box to learn more about DASH Diet: Care Instructions. Current as of: December 16, 2022 Content Version: 14.2 ?? 2023 [employer]. Care instructions adapted under license by your healthcare professional. If you have questions about a medical condition or this instruction, always ask your healthcare professional. [employer] disclaims any warranty or liability for your use of this information. * Tracy Holloway MD - 05/12/2024 2:00 PM EST Images from the original note were not included. Chief Complaint Rocío Nick is a 83 y.o. female presenting for Hypertension Subjective Hypertension: At our last visit in February, her blood pressure was elevated so her lisinopril was increased from 10 mg to 40 mg daily. At her visit with Dr. Maldonado on March 28, her blood pressure was also elevated. She was advised to return for repeat blood pressure check which she did on 05/08/2024. Blood pressure was again elevated and so she was sent amlodipine 5 mg daily. She tells me she has not started using the amlodipine because she is waiting for it to be delivered Her blood pressure today was 172/73 then 166/72. 5-minute average 158/66. States her BP this morning at home was 142/76. She has been checking her blood pressure at home andbring readings for review. Systolic blood pressure ranges in the 140s to 150s. She had some isolated blood pressure readings in the high 130s. Notes occasional head fuzziness that occurs randomly a few times a week. This has been ongoing for about 3 weeks. She continues on aspirin 81 mg daily She does note some stressors including her 61-year-old son who has PSP(progressive supranculear palsy) Her yupxkjju-nd-lnp (his ) drinks alcohol and sometimes gets nasty. She does not see them oftenbut worries about him because his condition is incurable. hyperlipidemia: Recently seen by Dr. Maldonado. She continues on Crestor and Repatha every 2 weeks She states that with the recent medication changes, she has started experiencing constipation. She reports she never had problems with her bowels before. As a result she purchased Colace which she has been using over the past few days. She is using 200 mg which is helpful. She denies bloody stools, nausea, vomiting or abdominal pain She notes occasional chest tightness. This has been ongoing for several years. She had a nuclear stress test done in October 2023 which was normal. Moderate to heavy coronary calcifications are noted on CT attenuation imaging . At recent hospital stay in February she had an echocardiogram which showed moderate mitral regurgitation , otherwise normal EF. She notes she was exposed to cigarette smoke as a child (both parents smoked cigarettes) her also smoked cigarettes and her daughter currently smokes cigarettes. She denies ever smoking cigarettes. Denies cough or wheezing She completed an MRI of the brain in February which was normal. She has an appt with Dr. Barr at [facility] in May. 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 States that her gait has always been off Reports in the past orthopedics had to drain the fluid in her knees. She had URI symptoms and tested positive for influenza A last month. Notes some nasal congestion. She was prescribed Flonase by colleague and is advised to use this as prescribed The following portions of the patient's history were reviewed by a provider in this encounter and updated as appropriate: Problems Allergies: She is allergic to lactose and wvkopea-nlc-ipk reductase inhibitors. Medications: Current Outpatient Medications Medication Instructions amLODIPine (NORVASC) 5 mg, oral, Daily aspirin 81 mg, oral, Daily calcium carb/vit D3/minerals (CALCIUM-VITAMIN D ORAL) Take by mouth daily. diclofenac (VOLTAREN) 1 % topical gel Apply 1 g topically 4 times daily as needed (pain). docusate sodium (COLACE) 200 mg, oral, Daily fluticasone propionate (FLONASE) 50 mcg/actuation nasal spray 2 sprays, Each Nostril, Daily, Shake gently. Before first use, prime pump. After use, clean tip and replace cap. lisinopril (PRINIVIL,ZESTRIL) 40 mg, oral, Daily Repatha SureClick 140 mg, subcutaneous, Every 14 days rosuvastatin (CRESTOR) 5 mg, oral, Daily solifenacin (VESICARE) 5 mg, oral, Daily zolpidem (AMBIEN) 5 mg tablet Take 1 Tablet by mouth at bedtime as needed for Insomnia. Depression Screening (PHQ2/9): Anxiety Screening: Social Influencer of Health (SIOH): Review of Systems: Review of Systems As noted In HPI Objective BP (!) 158/66 Comment: AV Pulse 69 Temp 36.7 ??C (98 ??F) (Temporal) Resp 16 Ht 1.549 m (61 ) Wt 55.8 kg (123 lb) BMI 23.24 kg/m?? Physical Exam Vitals reviewed. Constitutional: Appearance: Normal appearance. HENT: Head: Normocephalic and atraumatic. Cardiovascular: Rate and Rhythm: Normal rate and regular rhythm. Pulses: Normal pulses. Heart sounds: Normal heart sounds. No murmur heard. Pulmonary: Effort: Pulmonary effort is normal. No respiratory distress. Breath sounds: Normal breath sounds. Abdominal: Palpations: Abdomen is soft. Tenderness: There is no abdominal tenderness. Musculoskeletal: Cervical back: Normal range of motion. Right knee: Deformity present. Left knee: Deformity present. Right lower leg: No edema. Left lower leg: No edema. Comments: Valgus deformity bl Neurological: General: No focal deficit present. Mental Status: She is alert and oriented to person, place, and time. Comments: Slow but steady gait Chronic head tremor Psychiatric: Mood and Affect: Mood normal. Behavior: Behavior normal. Results for orders placed during the hospital encounter of 03/21/24 MR Brain wo and w Contrast Narrative MRI of the head without and with intravenous contrast. History nonspecific dizziness. Examination was performed on 1.5 Karime magnet without intravenous contrast followed by postcontraststudy after administration of 12 mL of DOTAREM. No prior MRI examinations are available for comparison. CT of the head and CTA of the great vessels of the neck and head obtained on 03/08/2024 was reviewed. There is probably age related cortical atrophy mostly involving are frontoparietal areas. There is no evidence of midline shift, extra or intra- axial blood fluid collections. There is no visible [...] Signed Date: 03/22/2024 01:11 ET Workstation ID: [id number] Transcribed By: Self Edit Transcribed Date: 03/22/2024 00:55 ET Assessment/Plan Assessment & Plan Primary hypertension Poorly controlled Continue lisinopril 40 mg daily. She will start the amlodipine 5 mg which was sent by cardiology on05/08/2024 as soon as she receives it Follow-up for blood pressure check in 1 month Mixed hyperlipidemia She will continue on the Crestor daily and Repatha every 2 weeks Chronic idiopathic constipation She thinks her medications may be causing constipation. So far none of the medicines she is on havea known side effect of constipation but it is possible that with the introduction of several of these medications this could affect her bowels. For now the Colace is helping so she will continue this. Will check TSH to rule out a secondary because of the constipation Orders: docusate sodium (Colace) 100 mg capsule; Take 2 capsules (200 mg total) by mouth 1 (one) time each day. Thyroid stimulating hormone with reflex to free t4 and free t3; Future Abnormal MRI of the head MRI of the brain is as above. She will follow-up with neurology as scheduled next month. She will continue the aspirin 81 mg daily Exposure to second hand tobacco smoke See HP Will obtain PFts Orders: Pulmonary function testing: Spirometry, Spirometry with Bronchodilator, Carbon Monoxide Diffusing Capacity Chest tightness As above Orders: Pulmonary function testing: Spirometry, Spirometry with Bronchodilator, Carbon Monoxide Diffusing Capacity Valgus deformity, not elsewhere classified, unspecified knee She thinks she may have fluid in the knees that needs to be drained. Will obtain x-rays for furtherevaluation. She does have chronic valgus deformities in both knees but no palpable fluid collectionon exam Orders: XR Knees AP Standing bilat; Future Nasal congestion Status post treatment for influenza A last month. Advised to use Flonase as prescribed Tracy Holloway MD [address] Dept: [phone] Dept Date of Visit: 05/12/2024 documented in this encounter Plan of Treatment Upcoming Encounters Date Type Department Care Team (Late st Contact Info) Description 06/14/2024 2:15 PM EDT Office Visit [address] [phone] Junie Leach PA [address] [place] [phone] 06/19/2024 9:00 AM EDT Office Visit Urogynecology - [address] [phone] Shaniqua Francois MD [address] [address] 07/31/2024 9:00 AM EDT Office Visit Adult Medicine [facility] - [address] [phone] Tracy Holloway MD [address] [place], [place] 08/02/2024 10:40 AM EDT Office Visit [facility] [address] [facility] [address] [place] [id number] Lsia Hutchinson NP [address] [facility] [address] [place] [phone] 09/25/2024 1:00 PM EDT Office Visit Urogynecology - [address] [phone] Shaniqua Francois MD [address] [phone] Scheduled Orders Name Type Priority Associated Diagnoses Orde r Schedule Pulmonary function testing: Spirometry, Spirometry with Bronchodilator, Carbon Monoxide Diffusing Capacity PFT Routine Exposure to second hand tobacco smoke Chest tightness Ordered: 05/12/2024 XR Knees AP Standing bilat Imaging Routine Valgus deformity, not elsewhere classified, unspecified knee Expected: 05/12/2024, Expires: 05/12/2025 documented as of this encounter Results * Thyroid stimulating hormone with reflex to free t4 and free t3 (05/12/2024 2:59 PM EST) [facility] TSH 2.37 0.40 - 4.00 mcIU/mL LAB CHEMISTRY METHOD 05/12/2024 6:59 PM EST [facility] Blood Venous blood specimen / Unknown Venipuncture / Unknown 05/12/2024 2:59 PM EST 05/12/2024 3:00 PM EST Tracy Holloway MD LAB BLOOD ORDERA BLES Final Result [facility] [address] [place] [address], documented in this encounter Visit Diagnoses Diagnosis Primary hypertension- Primary Unspecified essential hypertension Mixed hyperlipidemia Chronic idiopathic constipation Unspecified constipation Abnormal MRI of the head Nonspecific (abnormal) findings on radiological and other examination of skull and head Exposure to second hand tobacco smoke Chest tightness Other chest pain Valgus deformity, not elsewhere classified, unspecified knee Nasal congestion Other diseases of nasal cavity and sinuses documented in this encounter Discontinued Medications Medication Sig Discontinue Reason Start Date End Da te lactase (LACTAID ORAL) as directed on package Therapy completed 05/12/2024 documented as of this encounter Additional Health Concerns Infection Onset Date Last Indicated Resolved Time Influenza 04/20/2024 04/20/2024 05/14/2024 7:06 PM EST documented as of this encounter Care Teams Hand Violin Maker Relationship Specialty Start Date End Date Tracy Holloway MD [address] [place] [phone] PCP - General 01/12/23 documented as of this encounter
[2024-06-05 14:36] LABS: Vitamin B12 1118 pg/mL (200-900)
== END 2024-06-05 12:12 | disposition home or self-care (01) ==
LOC: HO.LAB 12:11
PROVIDERS: PCP Family Medicine; Visit Provider Psychiatry & Neurology Neurology
DX: G30.9 Alzheimer's disease, unspecified (principal)
CPT/HCPCS: 36415; 82607